=== PATIENT | female | born 1955 | race African-American/Black ===

== ENCOUNTER 2017-03-17 06:08 | Day surgery (SDC) | payer MEDICARE ==
[2017-03-15 11:30] LABS: BASOPHILS 0.1 % (0-2); EOSINOPHILS 1.5 % (0-7); HEMATOCRIT 32.8 % (36.0-48.0); HEMOGLOBIN 10.3 g/dL (12-16); IMMATURE GRANULOCYTES 0.1 % (0-5); MCH 27.2 pg (26.0-34.0); MCHC 31.4 g/dL (31.0-37.0); MCV 86.8 fL (80.0-100.0); MEAN PLATELET VOLUME 10.8 fL (7.4-10.4); MONOCYTES 7.2 % (2-11); NEUTROPHILS 70.1 % (40-80); PLATELET COUNT 168 10x3/uL (130-400); RBC 3.78 10x6/uL (4.00-5.40); WBC 8.2 10x3/uL (4.8-10.8)
[2017-03-15 11:39] LABS: ANION GAP 8.1 mmol/L (8-16); CALCIUM 8.9 mg/dL (8.5-10.1); CARBON DIOXIDE 34.6 mmol/L (21.0-32.0); POTASSIUM - SERUM 3.7 mmol/L (3.5-5.1)
[~2017-03-17] VITALS: Ht 163.8 cm; Wt 213.6 kg
[~2017-03-17 06:08] MED LIST: ALOPHEN PILLS5 MG PO; ANUSOL-HC 2.5%30 GM RC; BAYER ASPIRIN325 MG PO; CELEBREX 100 M100 MG PO; CITRATE OF MAG300 ML PO; DIOVAN HCT 160/1 TAB PO; FERROUS SULFAT325 MG PO; HYDROCODONE-APA1 TA3 PO; HYDROCODONE-APA1 TAB PO; HYZAAR 100-25 T1 TAB PO; IBUPROFEN200 MG PO; IPRAT-ALBUT 0.5-3 ML UPD; ISOSORBIDE DINI30 MG PO; ISOSORBIDE MONO30 M1 PO; KLOR-CON 1010 MEQ PO; KLOR-CON M2020 MEQ PO; LASIX40 MG PO; LEVOXYL125 MCG PO; MULTIPLE VITAMI1 TA1 PO; NEXIUM40 MG PO; OMEPRAZOLE20 M1 PO; OMNICEF300 MG PO; PROAIR HFA8.5 GM INH; SINGULAIR10 MG PO; TOPROL XL25 MG PO; TOPROL XL50 MG PO; ULTRAM50 MG PO; ZYLOPRIM300 MG PO
[2017-03-17 07:25] VITALS: BP 167/75; Ht 163.8 cm; Wt 213.6 kg
--- NOTE | 2017-03-17 07:25 | HP ---
PATIENT: PRUDENCIO GOODSON RED MEDICAL RECORD: [id number] ACCOUNT: [id number] LOCATION:[place] : 57 ADMISSION DATE: 03/17/17 HISTORY AND PHYSICAL EXAMINATION HISTORY OF PRESENT ILLNESS: This patient is a 62-year-old morbidly obese female with postmenopausal bleeding, scheduled for exam under anesthesia, appropriate biopsies, Pap smear, hysteroscopy and curettage on March 17. PAST MEDICAL HISTORY: Six previous pregnancies, 6 children. DRUG ALLERGIES: JASON INHIBITORS AND CLINDAMYCIN. CURRENT MEDICATIONS: Include potassium, rivaroxaban, allopurinol, aspirin, famotidine, furosemide, hydrocodone and acetaminophen, Isosorbide, levothyroxine, losartan with hydrochlorothiazide and metoprolol. PREVIOUS SURGERIES: Include breast surgery with lumpectomy in 1998 and hysteroscopy in 2014. FAMILY HISTORY: Noncontributory. REVIEW OF SYSTEMS: The patient is confined to wheelchair, unable to ambulate without a great deal of assistance. MEDICAL PROBLEMS: Include morbid obesity, congestive heart failure with heart murmur, diverticulitis, colon polyps, reflux. SOCIAL HISTORY: The patient is a . PHYSICAL EXAMINATION: VITAL SIGNS: Weight is approximately 470 pounds. HEENT: Grossly unremarkable. LUNGS: Clear. HEART: Regular rate and rhythm. A murmur is present at the left sternal border. PELVIC: Deferred for anesthesia. EXTREMITIES: Appear swollen. IMPRESSION: Postmenopausal bleeding and morbid obesity preventing any examination or evaluation in the office. PLAN: Exam under anesthesia, Pap smear, endocervical curettage, hysteroscopy, endometrial biopsies, endometrial curettage, all indicated procedures. I have discussed the above plan with the patient and her family member and answered all of her questions. TRANSINT:[id number] Voice Confirmation ID: [id number] DOCUMENT ID: [id number] HISTORY AND PHYSICAL [id number] PRUDENCIO GOODSON JANUARY JANNIE MAGAÑA MD at 0725 CC: [id number] DICTATION DATE: 03/15/171708 MOBILE HOME SET UP PERSON: 03/15/17 [id number] [place] [address]
--- NOTE | 2017-03-17 15:31 | NUR ---
1325--PT COMPLAINS OF NAUSEA, PHENERGHAN 25MG GIVEN IM. WILL CONTINUE TO MONITOR. ARACELI AGUILAR 1430--PT VOIDS WITHOUT DIFFICULTY. PT VERY SLEEPY, UNABLE TO STAY AWAKE TO COMPLETE CONVERSATION. ICE WATER AT BEDSIDE, INSTRUCTED FAMILY TO CALL OUT FOR NEDDEDS. ARACELI AGUILAR
--- NOTE | 2017-03-17 16:10 | NUR ---
1600--PT AWAKE AND SITTING UP IN BED, IV DC'D. ARACELI RN 1610--DISCHARGE INSTRUCTIONS GIVEN, PT VERBALIZES UNDERSTANDING. PT OFF UNIT VIA WC. ARACELI AGUILAR
--- NOTE | 2017-03-22 09:06 | OP ---
PATIENT NAME: PRUDENCIO GOODSON JANUARY MEDICAL RECORD: [id number] :57 [facility] ADMISS[facility] DATE: SURGEON: SUSIE MAGAÑA MD DATE OF OPERATION: 03/17/2017 PREOPERATIVE DIAGNOSES: Postmenopausal bleeding, morbid obesity, precluding office biopsy. POSTOPERATIVE DIAGNOSES: Postmenopausal bleeding, morbid obesity, precluding office biopsy. PROCEDURES: Exam under anesthesia, Pap smear, endocervical curettage, hysteroscopy, endometrial biopsy, and endometrial curettage. SURGEON: Susie Magaña M.D. ANESTHESIA: General. FINDINGS: A morbidly obese patient with normal-appearing cervix and irregular endometrial cavity upon visualization with the hysteroscope consistent in appearance with possible myoma. ESTIMATED BLOOD LOSS: Minimal. COMPLICATIONS OF SURGERY: None. OPERATIVE NOTE: The patient was taken to the OR and under adequate general anesthesia, prepped and draped in the usual manner for abdominal and vaginal procedures. Prior to prepping, a Pap smear was obtained and sent as a separate specimen. The endocervix was then curetted for a separate specimen. The cervix was progressively dilated to accept the hysteroscope and hysteroscopic evaluation revealed the above listed findings. An area in the lower uterus posteriorly and on patient's right appeared consistent with a myoma. Slight irregularity to the endometrium was biopsied. Instruments were then removed and the endometrial cavity was curetted and sent as a separate specimen. At the end of procedure, bleeding was minimal and the patient went to recovery area in good condition. TRANSINT:[id number] Voice Confirmation ID: [id number] DOCUMENT ID: [id number] SUSIE MAGAÑA MD at 0906 CC: [id number] DICTATION DATE: 03/17/17 1154 HOSPITAL ACCOUNT LIAISON: 03/17/172028 [facility] 03/17/17 [facility] [address] [id number]
== END 2017-03-17 16:10 | disposition home or self-care (01) ==
LOC: D.OPS 06:08 → D.PAN 09:45 → D.OPS 09:45
PROVIDERS: Obstetrics & Gynecology
DX: N84.0 Polyp of corpus uteri (principal); Z01.812 Encounter for preprocedural laboratory examination; E66.01 Morbid (severe) obesity due to excess calories; I50.9 Heart failure, unspecified; R01.1 Cardiac murmur, unspecified; K57.92 Diverticulitis of intestine, part unspecified, without perforation or abscess without bleeding; Z86.010 Personal history of colon polyps; K21.9 Gastro-esophageal reflux disease without esophagitis; Z79.82 Long term (current) use of aspirin; Z79.891 Long term (current) use of opiate analgesic; Z79.899 Other long term (current) drug therapy; Z88.1 Allergy status to other antibiotic agents; Z88.8 Allergy status to other drugs, medicaments and biological substances; Z68.45 Body mass index [BMI] 70 or greater, adult

== ENCOUNTER → 2017-04-01 10:57 | Outpatient (CLI) | payer MEDICARE ==
[2017-03-17 07:25] VITALS: BMI 79.7
== END | disposition home or self-care (01) ==
LOC: D.RAD 10:57
DX: M25.561 Pain in right knee (principal); M25.562 Pain in left knee

== ENCOUNTER → 2017-04-15 20:42 | Outpatient (CLI) | payer MEDICARE, MEDICAID ==
[2017-03-17 07:25] VITALS: BMI 79.7
== END | disposition home or self-care (01) ==
LOC: D.LABREF 20:42
DX: Z13.9 Encounter for screening, unspecified (principal)

== ENCOUNTER → 2017-05-12 19:04 | Outpatient (CLI) | payer MEDICARE, MEDICAID ==
[2017-03-17 07:25] VITALS: BMI 79.7
== END | disposition home or self-care (01) ==
LOC: D.LABREF 19:04
DX: L03.312 Cellulitis of back [any part except buttock and flank] (principal)

== ENCOUNTER → 2017-05-18 17:04 | Outpatient (CLI) | payer MEDICARE, MEDICAID ==
[2017-03-17 07:25] VITALS: BMI 79.7
== END | disposition home or self-care (01) ==
LOC: D.MAMMO 09:00
DX: Z12.31 Encounter for screening mammogram for malignant neoplasm of breast (principal)

== ENCOUNTER 2017-05-27 16:45 | Inpatient (IN) | payer MEDICARE, MEDICAID ==
[2017-05-27] MEDS ORDERED: PREDNISONE5 MG PO (17:58)
[2017-05-27] MEDS ORDERED: HYDROCODONE-APA1 TAB PO (18:00)
[2017-05-27] MEDS ORDERED: TYLENOL W/CODEI1 TAB PO (18:00)
[2017-05-27] MEDS ORDERED: MAGNESIUM OXID250 MG PO (18:01)
[2017-05-27] MEDS ORDERED: ASPIRIN325 MG PO (18:01)
[2017-05-27] MEDS ORDERED: ALEVE220 MG PO (18:02)
[2017-05-27] MEDS ORDERED: ACETAMINOPHEN500 M1 PO (18:02)
[2017-05-27] MEDS ORDERED: BACTRIM DS TABL1 TAB PO (18:03)
[2017-05-27] MEDS ORDERED: DOXYCYCLINE HY100 M2 PO (18:04)
--- NOTE | 2017-05-27 18:08 | NUR ---
PT TO ROOM, ALERT AND ORIENTED. FAMILY AT BEDSIDE. WILL ADMIT.
[2017-05-27 18:11] VITALS: BP 184/67; BMI 80.8
[2017-05-27 18:24] LABS: BASOPHILS 0.3 % (0-2); EOSINOPHILS 3.4 % (0-7); HEMATOCRIT 31.8 % (36.0-48.0); IMMATURE GRANULOCYTES 0.1 % (0-5); LYMPHOCYTES 19.6 % (15-50); MCH 27.4 pg (26.0-34.0); MCHC 31.4 g/dL (31.0-37.0); MCV 87.1 fL (80.0-100.0); MONOCYTES 6.6 % (2-11); PLATELET COUNT 175 10x3/uL (130-400); RBC 3.65 10x6/uL (4.00-5.40); RDW 16.5 % (11.5-14.5); WBC 6.7 10x3/uL (4.8-10.8)
[2017-05-27 19:02] LABS: ALBUMIN 3.4 g/dL (3.4-5.0); BILIRUBIN - TOTAL 0.2 mg/dL (0.2-1.3); CALCIUM 9.6 mg/dL (8.5-10.1); CARBON DIOXIDE 29.2 mmol/L (21.0-32.0); CREATININE - SERUM 1.1 mg/dL (0.6-1.3); POTASSIUM - SERUM 4.2 mmol/L (3.5-5.1); PROTEIN - SERUM 7.7 g/dL (6.4-8.2)
--- NOTE | 2017-05-27 19:40 | NUR ---
PT IN BED RESTING QUIETLY. FAMILY PRESENT IN ROOM. DENIES ANY NEEDS AT THIS TIME.
--- NOTE | 2017-05-27 20:20 | NUR ---
PT C/O PAIN. STATES TAKES HALF OF A NORCO 10 AT HOME AND AN ALEVE IN BETWEEN. VERIFIED ON HOME MED LIST. CALLED DR. MANN AND RECIEVED ORDER BY TELEPHONE TO START THESE MEDICATIONS WELL LOSARTAN 100/25 DUE TO BP BEING 184/67.
--- NOTE | 2017-05-27 22:00 | NUR ---
IV STARTED IN RIGHT UPPER ARM. 22G. ONE ATTEMPT. SALINE LOCKED. DRESSING CLEAN AND ADHERED TO SKIN. SWAB CAPS IN PLACE. PATENT.
[2017-05-27 23:46] LABS: APPEARANCE SLT CLOUDY (CLEAR); BILIRUBIN NEGATIVE (NEGATIVE); COLOR STRAW (YELLOW); GLUCOSE NEGATIVE (NEGATIVE); KETONE NEGATIVE (NEGATIVE); NITRITE NEGATIVE (NEGATIVE); PROTEIN NEGATIVE (NEGATIVE); UROBILINOGEN NORMAL (NORMAL)
[2017-05-28 04:00] VITALS: BP 137/60
[2017-05-28 05:46] LABS: BASOPHILS 0.3 % (0-2); EOSINOPHILS 4.4 % (0-7); HEMATOCRIT 29.8 % (36.0-48.0); HEMOGLOBIN 9.7 g/dL (12-16); IMMATURE GRANULOCYTES 0.2 % (0-5); LYMPHOCYTES 29.7 % (15-50); MCH 28.2 pg (26.0-34.0); MCHC 32.6 g/dL (31.0-37.0); MCV 86.6 fL (80.0-100.0); MEAN PLATELET VOLUME 11.7 fL (7.4-10.4); MONOCYTES 5.6 % (2-11); NEUTROPHILS 59.8 % (40-80); PLATELET COUNT 175 10x3/uL (130-400); RBC 3.44 10x6/uL (4.00-5.40); RDW 16.6 % (11.5-14.5); WBC 5.9 10x3/uL (4.8-10.8)
[2017-05-28 06:08] LABS: ALBUMIN 2.9 g/dL (3.4-5.0); ANION GAP 10.4 mmol/L (8-16); BILIRUBIN - TOTAL 0.2 mg/dL (0.2-1.3); CALCIUM 8.8 mg/dL (8.5-10.1); CARBON DIOXIDE 28.2 mmol/L (21.0-32.0); PHOSPHOROUS 3.8 mg/dL (2.5-4.9); POTASSIUM - SERUM 3.6 mmol/L (3.5-5.1); PROTEIN - SERUM 7.1 g/dL (6.4-8.2)
--- NOTE | 2017-05-28 07:11 | NUR ---
AM ROUNDS- PT UP TO SIDE OF BED, FAMILY GIVEN PT A BED BATH. PT A LITTLE SOB. DENIES ANY NEEDS AT THIS TIME. CALL LIGHT IN REACH, NAD NOTED, WILL CONTINUE TO MONITOR.
[2017-05-28 08:00] VITALS: BP 188/71
--- NOTE | 2017-05-28 08:55 | NUR ---
AM MEDS GIVEN AT THIS TIME. TREY SOARES AT BEDSIDE TO ASSESS PT. PT ASKING ABOUT ALL OF HER OTHER MES. WILL TALK TO AND SEE IF HE WANTS TO RESTART MEDS. PT DENIES ANY OTHER NEEDS AT THIS TIME. CALL LIGHT IN REACH, NAD NOTED, WILL CONTINUE TO MONITOR.
--- NOTE | 2017-05-28 10:06 | NUR ---
CALLED DR. MANN'S OFFICE, LEFT A MSG WITH MELANY TO LET DR. MANN KNOW THAT PT IS WANTING TO KNOW IF HER OTHER HOME MEDS CAN BE RESTARTED. MELANY WILL CALL BACK TO LET ME KNOW.
--- NOTE | 2017-05-28 10:25 | NUR ---
ADMINISTERED K ORDERED AND NAPROXEN FOR PAIN LEVEL OF 8/10. PT UP TO SIDE OF BED, DENIES ANY NEEDS AT THIS TIME. FAMILY AT BEDIDE, NAD NOTED, WILL CONTINUE TO MONITOR.
[2017-05-28] MEDS ORDERED: BACTROBAN CREAM15 GM TOPICAL (10:43)
[2017-05-28 12:00] VITALS: BP 146/49
--- NOTE | 2017-05-28 14:43 | NUR ---
Patient Name: PRUDENCIO GOODSON Admission Status: Elective Accout number: [id number] Admission Date: 05-27-2017 : 1955 Admission Diagnosis: Attending: ZIYAD MANN Current LOS: 1 Anticipated DC Date: Planned Disposition: Home Primary Insurance: [facility] Discharge Planning Comments: * Is the patient Alert and Oriented? Yes 0 * How many steps to enter\\exit or inside your home? RAMP 0 * PCP DR. MANN 0 * Pharmacy [facility] IN [place] 0 * Preadmission Environment Home with Family 0 * ADLs Partial Dependent 0 * Partial ADLs (Assistance needed) Bathing Dressing Medication Management Transfers 0 * Equipment CPAP Nebulizer Oxygen Wheelchair 0 * Other Equipment [facility] - MEDICAL EQUIPMENT PROVIDER 0 * List name and contact numbers for known caregivers / representatives who currently or will assist patient after discharge: RICHY HAMZAH, DTR, 0 * Community resources currently utilized Private Duty Care 0 * Please name any agencies selected above. DAUGHTER IS PAID CAREGIVER THROUGH [employer] ON [address] 0 * Additional services required to return to the preadmission environment? No 0 * Can the patient safely return to the preadmission environment? Yes 0 * Has this patient been hospitalized within the prior 30 days at any hospital? No 0 CM RECEIVED ORDER TO ASSIST WITH OBTAINING LIFT CHAIR FOR PT; CM CONTACTED DR. MANN TO INFORM THAT CHART NOTES WILL NEED TO INDICATE THAT PT HAS ARTHRITIS OF KNEES OR HIPS FOR THERE TO BE ANY HOPE THAT INSURANCE MAY ASSIST WITH THE LIFT CHAIR. CM MET WITH PT IN ROOM TO DISCUSS DISCHARGE PLANNING AND NEEDS. PT REPORTS LIVING AT HOME DEPENDENTLY WITH HER ADULT DAUGHTER WHO IS HER PAID CAREGIVER. PT REPORTS NEEDING ASSISTANCE WITH BATHING, TRANSFERS, DRESSING AND MEDICATION MANAGEMENT. PT HAS HOME OXYGEN, CPAP, NEBULIZER AND WHEELCHAIR FROM [facility] [employer] [facility]. PT REPORTS HER DAUGHTER HAS CHECKED WITH [employer] REGARDING THE LIFT CHAIR AND PT WANTS ORDER FAXED THERE. CM EXPLAINED THAT INSURANCE MAY PAY FOR THE LIFT MECHANISM ONLY AND THAT SHE WILL HAVE TO PAY FOR THE ACTUAL CHAIR WHICH MAY COSTS 200-700 DOLLARS, DEPENDING ON PT'S SELECTION OF CHAIR. PT REPORTED UNDERSTANDING. PT HAS MEALS ON WHEELS THROUGH THE [facility] ON [place]. CM DISCUSSED AVAILABILITY OF HOME HEALTH, REHAB SERVICES AND MEDICAL EQUIPMENT. PT DENIES DISCHARGE NEEDS OTHER THAN THE LIFT CHAIR, REPORTS PLAN TO RETURN HOME AT DISCHARGE WITH FAMILY ASSISTANCE, REPORTS FAMILY WILL PICK HER UP FOR DISCHARGE HOME. CM CALLED [facility], , SPOKE TO SNEHA WHO REPORTS ABILITY TO PROCESS ORDER FOR INSURANCE AND WILL NEED CHART NOTES FROM CLINIC INDICATING PT'S NEED FOR LIFT CHAIR AND WILL CONTACT THE DOCTOR IN CLINIC FOR ANY ADDITIONAL NEEDED INFORMATION. IF APPROVED BY INSURANCE, SNEHA WILL COODINATE DELIVERY WITH PT AND FAMILY. SNEHA REPORTS THIS IS A "PROCESS" AND MAY TAKE SOME TIME. CM FAXED ORDER AND CHART NOTES TO [facility] AT [phone]. CM TO FOLLOW AND ASSIST IF NEEDED. Swage Tender: Anup Flores
[2017-05-28 15:28] VITALS: BMI 80.7
[2017-05-28 16:00] VITALS: BP 135/69
--- NOTE | 2017-05-28 19:47 | NUR ---
PT IN BED RESTING QUEITLY. FAMILY IN ROOM. DENIES ANY PAIN OR NEEDS AT THIS TIME. BED IN LOW POSITION, CALL LIGHT WITHIN REACH.
--- NOTE | 2017-05-28 23:30 | NUR ---
PT STATES THAT SHE IS HAVING CRAMPING IN HER LEGS DUE TO LOW POTASSIUM. ORDERED LAB DRAW TO CHECK POTASSIUM LEVELS. DENIES ANY OTHER NEEDS AT THIS TIME. BED IN LOW POSITION, CALL LIGHT WITHIN REACH.
[2017-05-29 01:49] VITALS: BP 140/59
--- NOTE | 2017-05-29 02:22 | NUR ---
LAB RESULTS FOR K CAME BACK 3.5. INFORMED PT AND FAMILY MEMBERS. WILL NOT GIVE K PER PROTOCOL FOR THIS LEVEL. PT IN BED RESTING QUIETLY. DENIES ANY PAIN OR DISCOMFORT AT THIS TIME. BED IN LOW POSITION, CALL LIGHT WITHIN REACH.
[2017-05-29 05:53] VITALS: BP 152/72
--- NOTE | 2017-05-29 07:05 | NUR ---
RECEIVED REPORT. ASSUMED CARE OFNVTEINT. RESTING IN BED WITH EYES OPEN. PERSONAL CPAP UNIT PATENT. FAMILY AT BEDSIDE. PATIENT DENIES NEEDS AT THIS TIME. CALL LIGHT WITHIN REACH. NO DISTRESS.
[2017-05-29 07:17] LABS: BASOPHILS 0.3 % (0-2); EOSINOPHILS 4.9 % (0-7); HEMOGLOBIN 10.1 g/dL (12-16); IMMATURE GRANULOCYTES 0.2 % (0-5); LYMPHOCYTES 29.4 % (15-50); MCH 27.4 pg (26.0-34.0); MCHC 31.6 g/dL (31.0-37.0); MCV 86.7 fL (80.0-100.0); MEAN PLATELET VOLUME 11.6 fL (7.4-10.4); MONOCYTES 6.5 % (2-11); NEUTROPHILS 58.7 % (40-80); PLATELET COUNT 180 10x3/uL (130-400); RBC 3.69 10x6/uL (4.00-5.40); RDW 16.5 % (11.5-14.5); WBC 6.2 10x3/uL (4.8-10.8)
[2017-05-29 07:31] LABS: ALBUMIN 3.2 g/dL (3.4-5.0); ANION GAP 12.7 mmol/L (8-16); BILIRUBIN - TOTAL 0.3 mg/dL (0.2-1.3); CALCIUM 8.8 mg/dL (8.5-10.1); CARBON DIOXIDE 30.6 mmol/L (21.0-32.0); CREATININE - SERUM 1.1 mg/dL (0.6-1.3); POTASSIUM - SERUM 3.3 mmol/L (3.5-5.1); PROTEIN - SERUM 7.5 g/dL (6.4-8.2)
[2017-05-29 08:19] VITALS: BP 151/55
--- NOTE | 2017-05-29 10:28 | NUR ---
PAGED FOR ORDER CLARIFICATION.
--- NOTE | 2017-05-29 10:37 | NUR ---
SPOKE WITH AND RECIEVED ORDERS TO CHANGE LASIX BACK TO 40MG EVERY 12 HOURS DUE TO THE AMOUNT OF FLUID THAT WAS TAKEN OFF YESTERDAY. PATEINT IS DOING VERY WELL. THANKED FOR THE ORDERS PATIENT WAS NERVOUS ABOUT RECEIVING LASIX EVERY 6 HOURS. PATIENT AND FAMILY NOTIFIED OF THE CHANGE.
--- NOTE | 2017-05-29 11:14 | NUR ---
MEDICATED FOR PAIN AT THIS TIME. PATIENT HAVING SEVERE LEG CRAMPS.
--- NOTE | 2017-05-29 11:24 | NUR ---
MAGNESIUM ADDED TO AM LABS.
[2017-05-29 11:46] VITALS: BP 155/84
--- NOTE | 2017-05-29 11:54 | NUR ---
MAGNESIUM 1.6. MAGNESIUM EP INITIATED AT THIS TIME.
--- NOTE | 2017-05-29 12:32 | NUR ---
MEDICATED FOR PAIN AT THIS TIME. NO DISTRESS.
[2017-05-29 16:01] VITALS: BP 141/94
--- NOTE | 2017-05-29 16:33 | NUR ---
FAMILY REMAINS AT BEDSIDE. CALL LIGHT WITHIN REACH. PATIENT DENIES NEEDS AT THIS TIME. 2ND DOSE OF MAGNESIUM ADMINISTERED AT 1600 PER PROTOCOL. LABS ORDERED FOR AM PER PROTOCOL. NO DISTRESS.
--- NOTE | 2017-05-29 18:19 | NUR ---
MEDICATED FOR PAIN AT THIS TIME. NO DISTRESS.
--- NOTE | 2017-05-29 19:50 | NUR ---
PT RESTING IN BED. ADULT CHILDREN X 2 AT BEDSIDE. PT ALERT/ORIENTED. SR PER TELEMETRY. NONLABORED RESPIRATIONS ON ROOM AIR. DOES WEAR HOME CPAP AT NIGHT. PIV TO LEWIS SALINE LOCKED. PT GETS UP AND DOWN TO BATHROOM WITH ASSIST OF CHILDREN. NO NEEDS VOICED. DISCUSSED PAIN MEDS AND WHEN SHE CAN HAVE NEXT DOSES. SEE ASSESSMENT. CPOC.
[2017-05-29 20:00] VITALS: BP 134/40
--- NOTE | 2017-05-29 22:00 | NUR ---
BEDTIME MEDS HAVE NOW BEEN GIVEN. PT ALSO C/O NO BM SINCE LAST WEDNESDAY, SO PROVIDED PT WITH COCKTAIL OF WARMED PRUNE JUICE AND LEMON ROBINSON DRINK. PROVIDED NAPROXEN FOR PAIN AT THIS TIME. WILL MONITOR.
[2017-05-30] VITALS: BP 126/72
--- NOTE | 2017-05-30 01:15 | NUR ---
MEDICATED WITH NORCO TAB X 1 FOR PAIN/DISCOMFORT. PT STATES THE PRUNEJUICE/LEMON SOBOBA COCKTAILS SHE RECIEVED EARLIER IS WORKING AND SHE HAS ALREADY HAD ONE GOOD BM AND FEELS THAT SHE MAY STILL HAVE ANOTHER BM SHORTLY. PT ALSO SAID HER DAUGHTER APPLIED THE ANUSOL CREAM TO HER HEMORRHOIDS. NO OTHER NEEDS AT THIS TIME.
[2017-05-30 04:00] VITALS: BP 136/87
[2017-05-30 06:15] LABS: ALBUMIN 3.1 g/dL (3.4-5.0); ANION GAP 12.4 mmol/L (8-16); BILIRUBIN - TOTAL 0.3 mg/dL (0.2-1.3); CALCIUM 8.6 mg/dL (8.5-10.1); CARBON DIOXIDE 31.2 mmol/L (21.0-32.0); CREATININE - SERUM 1.2 mg/dL (0.6-1.3); MAGNESIUM - SERUM 1.7 mg/dL (1.8-2.4); POTASSIUM - SERUM 3.6 mmol/L (3.5-5.1); PROTEIN - SERUM 7.3 g/dL (6.4-8.2)
--- NOTE | 2017-05-30 07:00 | NUR ---
RECEIVED REPORT. ASSUMED CARE OF PATIENT. CALL LIGHT WITHIN REACH. NO DISTRESS. RESTING IN BED, COMPLAINING OF PAIN. FAMILY AT BEDSIDE.
--- NOTE | 2017-05-30 07:30 | NUR ---
MEDICATED FOR PAIN AT THIS TIME. NO DISTRESS.
[2017-05-30 07:58] VITALS: BP 137/59
[2017-05-30 11:14] VITALS: BP 123/58
--- NOTE | 2017-05-30 13:14 | NUR ---
MEDICATED FOR PAIN AT THIS TIME.
--- NOTE | 2017-05-30 15:25 | NUR ---
MEDICATED FOR PAIN AT THIS TIME.
[2017-05-30 16:18] VITALS: BP 100/58
--- NOTE | 2017-05-30 17:19 | NUR ---
RESTING IN BED. FAMILY AT BEDSIDE. NO DISTRESS. DENIES NEEDS AT THIS TIME.
--- NOTE | 2017-05-30 19:09 | NUR ---
MEDICATED FOR PAIN AT THIS TIME. NO DISTRESS.
[2017-05-30 20:00] VITALS: BP 124/79
--- NOTE | 2017-05-30 21:03 | NUR ---
PT AWAKE, ALERT, ORIENTED, FAMILY AT BEDSIDE. PT IS C/O GREAT PAIN IN HER KNEES AND OTHER JOINTS, STATES THE PRN PAIN MEDICATION HELPS MINIMALLY. PT DID AMBULATE WITH ASSISTANCE BY HER DAUGHTER SO THAT WE COULD ZERO OUT THE BEDSCALE, BUT IS ABLE TO STAND ONLY FOR VERY SHORT PERIODS OF TIME. PT DENIES ANY OTHER NEEDS. CONTINUE TO MONITOR CLOSELY. BED LOW, CALL LIGHT IN REACH, SIDE RAILS X 2, HOB 30 DEGREES.
[2017-05-31] VITALS: BP 116/69
[2017-05-31 04:00] VITALS: BP 126/88
[2017-05-31 05:11] LABS: BASOPHILS 0.3 % (0-2); EOSINOPHILS 3.7 % (0-7); HEMATOCRIT 30.2 % (36.0-48.0); HEMOGLOBIN 9.5 g/dL (12-16); IMMATURE GRANULOCYTES 0.1 % (0-5); MCH 27.5 pg (26.0-34.0); MCHC 31.5 g/dL (31.0-37.0); MCV 87.3 fL (80.0-100.0); MEAN PLATELET VOLUME 11.5 fL (7.4-10.4); MONOCYTES 6.2 % (2-11); NEUTROPHILS 62.7 % (40-80); PLATELET COUNT 177 10x3/uL (130-400); RBC 3.46 10x6/uL (4.00-5.40); RDW 16.7 % (11.5-14.5); WBC 6.8 10x3/uL (4.8-10.8)
[2017-05-31 05:29] LABS: ALBUMIN 3.1 g/dL (3.4-5.0); ANION GAP 11.3 mmol/L (8-16); BILIRUBIN - TOTAL 0.27 mg/dL (0.2-1.3); CALCIUM 8.3 mg/dL (8.5-10.1); CARBON DIOXIDE 32.1 mmol/L (21.0-32.0); CREATININE - SERUM 1.3 mg/dL (0.6-1.3); MAGNESIUM - SERUM 1.8 mg/dL (1.8-2.4); POTASSIUM - SERUM 3.4 mmol/L (3.5-5.1); PROTEIN - SERUM 7.3 g/dL (6.4-8.2)
--- NOTE | 2017-05-31 06:24 | NUR ---
PT RESTING COMFORTABLY, C-PAP ON, DAUGHTER AT BEDSIDE. PT DENIES ANY NEEDS. CONTINUE TO MONITOR CLOSELY.
--- NOTE | 2017-05-31 07:15 | NUR ---
RECIEVED REPORT ON PATIENT, PATIENT IS ALERT AND ORIENTED AT THIS TIME. PATIENT HAS A R UPPER ARM IV THAT IS SL AT THIS TIME. PATIENT IS SR ON MONITOR WITH A RATE OF 70. PATIENT IS WEARING CPAP AT THIS TIME, PATIENT DENIES ANY NEEDS OR PAIN AT THIS TIME. BED IS LOW AND LOCKED. CALL LIGHT IN REACH. WILL CONT TO MONITOR. CPOC
[2017-05-31] MEDS ORDERED: COZAAR50 MG PO (07:51)
[2017-05-31] MEDS ORDERED: LASIX40 MG PO (07:53)
[2017-05-31 08:00] VITALS: BP 135/59
--- NOTE | 2017-05-31 09:00 | NUR ---
MORNING MEDICATION GIVEN, ASSESSMENT DONE. PATIENT DENIES ANY NEEDS. BED LOW AND LOCKED, CALL LIGHT IN REACH. CPOC.
--- NOTE | 2017-05-31 11:16 | NUR ---
PATIENT SITTING ON SIDE OF BED, DENIES ANY NEEDS AT THIS TIME. PATIENT IS GOING TO BE DC TODAY, WAITING ON PAPERWORK. CPOC
[2017-05-31 12:00] VITALS: BP 146/58
--- NOTE | 2017-05-31 12:10 | NUR ---
Patient Name: PRUDENCIO GOODSON Encounter No: [id number] : 1955 Primary Insurance: [employer] Anticipated DC Date: 05-31-2017 Planned Disposition: Home WITH HOME HEALTH External Planned Provider: [facility] DCP follow-up note: CM RECEIVED DISCHARGE AND HOME HEALTH ORDERS. CM MET WITH PT AND DAUGHTER IN ROOM. PT REPORTS PLAN TO DISCHARGE TO HER SON'S APARTMENT AT [address] [place] [address], [address] [place]. [address]; PT WILL STAY THERE FOR APPROXIMATELY ONE MONTH PRIOR TO RETURNING TO HER HOME IN [place]. CM DISCUSSED ORDER AND PROVIDERS FOR HOME HEALTH. PT INITIALLY STATED THAT SHE HAS FAMILY AND HER DAUGHTER A CAREGIVER ALL OF THE TIME AND DID NOT SEE THE NEED FOR HOME HEALTH. CM RECEIVED CLAIFICATION FROM THE DOCTOR, PT WILL NEED DAILY WEIGHTS AND VITALS DUE TO MEDICATION CHANGES; PT REPORTS SHE WILL ACCEPT HOME HEALTH, HAS NO PREFERENCE ON PROVIDER. PT NOR FAMILY HAVE A SCALE TO WEIGH PT. HOME HEALTH CHOICE SIGNED, IMPORTANT MESSAGE FROM MEDICARE PROVIDED AND EXPLAINED. CM CALLED [facility], , WAS ADVISED BY ZOILA THEY DID NOT HAVE NEXT DAY AVAILABILITY NOR THE ABILITY TO WEIGH PT AT HER CURRENT WEIGHT. CM CALLED [facility], , SPOKE TO ADI, PROVIDED REFERRAL INFORMATION, DISCUSSED DAILY WEIGHTS AND VITALS WELL PT'S CURRENT WEIGHT. ADI WILL RECEIVE REFERRAL AND LET CM KNOW IF THEY CAN PROVIDE SERVICES. CM FAXED REFERRAL TO [facility], . CM WAITING RETURN CALL FROM [facility] TO NOTIFY CM IF [facility] WILL ACCEPT OR DECLINE PT. Anup Flores, CASE MANAGEMENT
--- NOTE | 2017-05-31 14:38 | NUR ---
PATIENT RESTING WITH EYES CLOSED, AROUSES TO VOICE. DENIES ANY NEEDS. FAMILY AT BEDSIDE. CPOC
--- NOTE | 2017-05-31 17:16 | NUR ---
PATIENT IV DC WITH CATH TIP INTACT. SIGNED DC PAPERWORK. DENIES ANY QUESTIONS. PATIENT READY FOR DC
--- NOTE | 2017-06-02 16:59 | NUR ---
Patient Name: PRUDENCIO GOODSON Encounter No: [id number] : 1955 Primary Insurance: [employer] Anticipated DC Date: 05-31-2017 Planned Disposition: Home DCP follow-up note: CM RECEIVED CALL FROM ADI OF [facility], [facility] MET WITH PT AT HOME FOR ADMISSION AND PT HAS REFUSED HOME HEALTH SERVICES AND REPORTS SHE IS STILL DRIVING A VEHICLE. ADI CALLED TO INFORM CM THAT PT DECLINED SERVICES. Anup Flores, CASE MANAGEMENT
--- NOTE | 2017-06-18 16:56 | EC ---
PATIENT:PRUDENCIO GOODSON JANUARY DATE OF SERVICE: 05/27/17 SEX: F MEDICAL RECORD: [id number] DATE OF : [birth year] LOCATION:D.M2 D.213 AGE OF PATIENT: 62 ADMISSION DATE: 05/27/17 REFERRING PHYSICIAN: INTERPRETING PHYSICIAN: KELLI REYNOLDS MD ECHOCARDIOGRAM REPORT ECHO CHARGES 4 ECHO COMPLETE CLINICAL DIAGNOSIS: CHF/SOB ECHOCARDIOGRAPHIC MEASUREMENTS (adult normal given) AC root (d.<3.7cm) 2.7 cm LV Septum d (<1.2 cm> 1.0 cm Valve Excursion 1.8 cm LV Septum (systole) 1.6 cm Left Atria (s.<4.0cm> 3.4 cm LVPW d(<1.2cm) 1.2 cm RV (d.<2.3cm) 3.5 cm LVPW (sytole) 2.1 cm LV diastole(<5.6CM) 6.3 cm MV E-F(>70mm/sec) cm LV systole 3.2 cm LVOT Diameter 1.8 cm MV exc.(>10mm) cm Est.ejection fraction (50-75%) % Pericardial Effusion N DOPPLER: LVIT cm/sec A 76.0 cm/sec E 86.0 cm/sec LA cm/sec RVSP 36.0 mmHg LVOT 180 cm/sec AOP1/2T m/s Asc. Ao 309 cm/sec RVOT 83.0 cm/sec RA cm/sec PA 155 cm/sec AV Gradient Peak 38.2 mmHg AV Mean 19.0 mmHg AV Area 1.8 cm MV Gradient Peak 6.0 mmHg MV Mean 2.5 mmHg MV Area cm COMMENTS: Heat Treat Furnace Operator: Dannielle MCDANIELOE Door Liner Helper: 1 Dr. Reynolds TAPE# PACS DATE OF SERVICE: 05/28/2017 ECHOCARDIOGRAM FINDINGS: 1. Left ventricle chamber size is within normal limits. Left ventricular systolic function is normal. Overall ejection fraction estimated at 55%. 2. Left atrium and right atrium: Left atrium is within normal limits at 3.4 cm. Right atrium and right ventricular chamber sizes are mildly dilated. 3. Valvular structures: The aortic valve demonstrates mild calcific aortic ECHOCARDIOGRAM REPORT [id number] PRUDENCIO GOODSON JANUARY stenosis. The valve area calculates to 1.8 cm square. There is a gradient of 38 mm across the valve. The remaining valvular structures have normal structure and motion. 4. Doppler interrogation elsewise reveals no significant valvular insufficiency or stenosis and pulmonary systolic pressure is normal estimated 36 mmHg. 5. No evidence of pericardial effusion or left ventricular thrombus. TRANSINT:[id number] Voice Confirmation ID: [id number] DOCUMENT ID: [id number] KELLI REYNOLDS MD at 1656 CC: [id number] DICTATION DATE: 05/28/17 1413 ELECTROLYSIST: 05/28/17 1533 DIS IN 05/31/17 [facility] [address] [place] [address]
== END 2017-05-31 17:17 | disposition home health service (06) | DRG 292 ==
LOC: D.M2 16:45 → UNDOADMIN 16:45 → D.M2 17:33
PROVIDERS: ADMIT Family Medicine
DX: I11.0 Hypertensive heart disease with heart failure (principal); Z68.44 Body mass index [BMI] 60.0-69.9, adult; I50.33 Acute on chronic diastolic (congestive) heart failure; D64.9 Anemia, unspecified; E78.5 Hyperlipidemia, unspecified; G47.33 Obstructive sleep apnea (adult) (pediatric); I35.0 Nonrheumatic aortic (valve) stenosis; E66.01 Morbid (severe) obesity due to excess calories

== ENCOUNTER → 2017-06-10 13:31 | Outpatient (CLI) | payer MEDICARE, MEDICAID ==
[2017-05-28 15:28] VITALS: BMI 80.7
[~2017-06-10 13:31] MED LIST changes: +ACETAMINOPHEN500 M1 PO; +ALEVE220 MG PO; +ASPIRIN325 MG PO; +BACTRIM DS TABL1 TAB PO; +BACTROBAN CREAM15 GM TOPICAL; +COZAAR50 MG PO; +DOXYCYCLINE HY100 M2 PO; +MAGNESIUM OXID250 MG PO; +PREDNISONE5 MG PO; +TYLENOL W/CODEI1 TAB PO
== END | disposition home or self-care (01) ==
LOC: D.MAMMO 09:30
DX: R92.8 Other abnormal and inconclusive findings on diagnostic imaging of breast (principal)

== ENCOUNTER → 2017-07-14 08:34 | Outpatient (CLI) | payer SELFPAY ==
[~2017-07-14] VITALS: Ht 163.8 cm; Wt 204.1 kg
[2017-07-14 10:40] VITALS: Ht 163.8 cm; Wt 204.1 kg
== END | disposition home or self-care (01) ==
LOC: D.FANS 06-09 10:30
DX: K21.9 Gastro-esophageal reflux disease without esophagitis (principal); E66.01 Morbid (severe) obesity due to excess calories

== ENCOUNTER 2017-12-26 11:02 | Emergency (ER) | payer MEDICARE, MEDICAID ==
[2017-07-14 10:40] VITALS: BMI 76.0
[2017-12-26 13:38] LABS: APPEARANCE CLOUDY (CLEAR); BILIRUBIN NEGATIVE (NEGATIVE); COLOR YELLOW (YELLOW); GLUCOSE NEGATIVE (NEGATIVE); KETONE NEGATIVE (NEGATIVE); NITRITE NEGATIVE (NEGATIVE); PROTEIN TRACE mg/dL (NEGATIVE); UROBILINOGEN NORMAL (NORMAL)
[2017-12-26 13:40] LABS: BACTERIA MODERATE /hpf (NONE SEEN); EPITHELIAL CELLS 0-5 /hpf (0-5); RED CELLS - URINE 0-5 /hpf (0-5); WHITE CELLS - URINE 0-5 /hpf (0-5)
== END 2017-12-26 14:21 | disposition home or self-care (01) ==
LOC: D.ER 11:02
PROVIDERS: Physician Assistant
DX: M54.6 Pain in thoracic spine (principal); I50.9 Heart failure, unspecified; I10 Essential (primary) hypertension; G47.33 Obstructive sleep apnea (adult) (pediatric); E03.9 Hypothyroidism, unspecified

== ENCOUNTER → 2018-03-03 09:46 | Outpatient (CLI) | payer MEDICARE, MEDICAID ==
[2017-07-14 10:40] VITALS: BMI 76.0
== END | disposition home or self-care (01) ==
LOC: D.RAD 02-25 13:00 → D.RT 02-25 13:00 → D.RAD 02-25 13:45 → D.RT 09:00
DX: J45.909 Unspecified asthma, uncomplicated (principal)

== ENCOUNTER 2018-05-15 13:53 | Observation (INO) | payer MEDICARE, MEDICAID ==
[~2018-05-15] VITALS: Ht 163.8 cm; Wt 207.7 kg
--- NOTE | ~2018-05-15 | EC ---
PATIENT:PRUDENCIO GOODSON JANUARY DATE OF SERVICE: 05/15/18 SEX: F MEDICAL RECORD: [id number] DATE OF : [birth year] LOCATION:D. D.212 AGE OF PATIENT: 63 ADMISSION DATE: 05/15/18 REFERRING PHYSICIAN: INTERPRETING PHYSICIAN: KELLI REYNOLDS MD ECHOCARDIOGRAM REPORT ECHO CHARGES 4 ECHO COMPLETE Date: 05/16/18 CLINICAL DIAGNOSIS: CHF ECHOCARDIOGRAPHIC MEASUREMENTS (adult normal given) AC root (d.<3.7cm) 3.0 cm LV Septum d (<1.2 cm> 1.4 cm Valve Excursion 1.6 cm LV Septum (systole) 2.1 cm Left Atria (s.<4.0cm> 3.8 cm LVPW d(<1.2cm) 1.5 cm RV (d.<2.3cm) 2.6 cm LVPW (sytole) 2.1 cm LV diastole(<5.6CM) 5.9 cm MV E-F(>70mm/sec) cm LV systole 4.1 cm LVOT Diameter 1.8 cm MV exc.(>10mm) cm Est.ejection fraction (50-75%) % DOPPLER: LVIT cm/sec A 103 cm/sec E 147 cm/sec LA cm/sec RVSP 50.0 mmHg LVOT 252 cm/sec AOP1/2T m/s Asc. Ao 339 cm/sec RVOT 87.0 cm/sec RA cm/sec PA 147 cm/sec AV Gradient Peak 46.0 mmHg AV Mean 24.0 mmHg AV Area 2.0 cm MV Gradient Peak 7.4 mmHg MV Mean 3.1 mmHg MV Area cm COMMENTS: Solvent Station Attendant: 1 DAVINA [place] Director Of Critical Care: 1 Dr. Reynolds TAPE# PACS Pericardial Effusion N DATE OF SERVICE: FINDINGS: 1. Left ventricular chamber size is mildly dilated. Left ventricular systolic function is normal. Overall ejection fraction estimated at 55%. 2. Left atrium is within normal limits at 3.8 cm. Right atrium and right ventricle chamber sizes are moderately dilated. 3. Valvular structures have normal structure and motion. 4. Doppler interrogation reveals mild mitral regurgitation. No other valvular insufficiency or stenosis. Pulmonary systolic pressure is elevated, estimated ECHOCARDIOGRAM REPORT [id number] PRUDENCIO GOODSON JANUARY at 50 mmHg. 5. No evidence of pericardial effusion or left ventricular thrombus. TRANSINT:[id number] Voice Confirmation ID: [id number] DOCUMENT ID: [id number] KELLI REYNOLDS MD at 1823 CC: [id number] DICTATION DATE: 05/16/18 1251 HOT PRESS OPERATOR: 05/16/18 1326 ADM IN [facility] [address] [place] [address]
[2018-05-15 14:34] LABS: BASOPHILS 0.3 % (0-2); EOSINOPHILS 2.9 % (0-7); HEMATOCRIT 32.8 % (36.0-48.0); HEMOGLOBIN 10.4 g/dL (12-16); IMMATURE GRANULOCYTES 0.4 % (0-5); LYMPHOCYTES 28.2 % (15-50); MCHC 31.7 g/dL (31.0-37.0); MCV 88.2 fL (80.0-100.0); MEAN PLATELET VOLUME 11.5 fL (7.4-10.4); MONOCYTES 6.3 % (2-11); NEUTROPHILS 61.9 % (40-80); PLATELET COUNT 167 10x3/uL (130-400); RBC 3.72 10x6/uL (4.00-5.40); RDW 15.1 % (11.5-14.5); WBC 7.6 10x3/uL (4.8-10.8)
[2018-05-15 15:11] LABS: ALBUMIN 3.4 g/dL (3.4-5.0); ALKALINE PHOSPHATASE 118 U/L (46-116); ALT (SGPT) 18 U/L (10-68); BILIRUBIN - TOTAL 0.22 mg/dL (0.2-1.3); CALC OSMOLALITY 280 mosm/kg (275-300); CALCIUM 9.3 mg/dL (8.5-10.1); CARBON DIOXIDE 29.5 mmol/L (21.0-32.0); CHLORIDE - SERUM 103 mmol/L (98-107); GLUCOSE 97 mg/dL (74-106); POTASSIUM - SERUM 3.5 mmol/L (3.5-5.1); PROTEIN - SERUM 8.6 g/dL (6.4-8.2); SODIUM 140 mmol/L (136-145); UREA NITROGEN 17 mg/dL (7-18); eGFR NON AFRICAN AMERICAN 59 mL/min (90-120)
[2018-05-15 15:23] LABS: CKMB 0.3 U/L (0.0-3.6); CREATINE KINASE 69 UL (21-215); PRO BNP 332 pg/mL (0-125)
[2018-05-15 15:29] LABS: TROPONIN-I < 0.017 ng/mL (0.000-0.060)
[2018-05-15 19:00] VITALS: BP 157/64
[2018-05-15 19:51] VITALS: BP 179/87
[2018-05-15 22:23] VITALS: BP 156/53; Ht 163.8 cm; Wt 207.7 kg
[2018-05-15 23:09] LABS: CKMB 0.3 U/L (0.0-3.6); CREATINE KINASE 82 UL (21-215)
[2018-05-15 23:12] LABS: TROPONIN-I < 0.017 ng/mL (0.000-0.060)
[2018-05-16 01:13] VITALS: BP 156/53
[2018-05-16 05:32] LABS: CKMB 0.3 U/L (0.0-3.6); CREATINE KINASE 75 UL (21-215); TROPONIN-I < 0.017 ng/mL (0.000-0.060)
[2018-05-16 06:12] VITALS: BP 163/61
[2018-05-16 07:55] VITALS: BP 169/58
[2018-05-16 11:55] VITALS: BP 164/68
[2018-05-16 16:29] VITALS: BP 132/50
[2018-05-16 20:00] VITALS: BP 149/58
[2018-05-17 04:00] VITALS: BP 169/73
[2018-05-17 08:21] VITALS: BP 170/49
[2018-05-17 09:43] LABS: BASOPHILS 0.3 % (0-2); EOSINOPHILS 4.3 % (0-7); HEMATOCRIT 33.2 % (36.0-48.0); HEMOGLOBIN 10.6 g/dL (12-16); IMMATURE GRANULOCYTES 0.2 % (0-5); LYMPHOCYTES 29.1 % (15-50); MCH 28.1 pg (26.0-34.0); MCHC 31.9 g/dL (31.0-37.0); MCV 88.1 fL (80.0-100.0); MEAN PLATELET VOLUME 11.6 fL (7.4-10.4); MONOCYTES 4.5 % (2-11); NEUTROPHILS 61.6 % (40-80); PLATELET COUNT 171 10x3/uL (130-400); RBC 3.77 10x6/uL (4.00-5.40); RDW 15.2 % (11.5-14.5); WBC 6.5 10x3/uL (4.8-10.8)
[2018-05-17 09:58] LABS: ANION GAP 11.3 mmol/L (8-16); CALCIUM 9.3 mg/dL (8.5-10.1); CARBON DIOXIDE 32.3 mmol/L (21.0-32.0); CREATININE - SERUM 1.1 mg/dL (0.6-1.3); POTASSIUM - SERUM 3.6 mmol/L (3.5-5.1)
[2018-05-17 15:39] VITALS: BP 164/56
[2018-05-17 23:42] VITALS: BP 157/65
[2018-05-18 01:57] VITALS: BP 136/53
[2018-05-18 05:19] LABS: BASOPHILS 0.3 % (0-2); EOSINOPHILS 4.1 % (0-7); HEMATOCRIT 30.8 % (36.0-48.0); HEMOGLOBIN 9.7 g/dL (12-16); LYMPHOCYTES 31.3 % (15-50); MCH 27.6 pg (26.0-34.0); MCHC 31.5 g/dL (31.0-37.0); MCV 87.7 fL (80.0-100.0); MEAN PLATELET VOLUME 11.6 fL (7.4-10.4); MONOCYTES 7.4 % (2-11); NEUTROPHILS 56.9 % (40-80); PLATELET COUNT 155 10x3/uL (130-400); RBC 3.51 10x6/uL (4.00-5.40); RDW 15.3 % (11.5-14.5); WBC 6.3 10x3/uL (4.8-10.8)
[2018-05-18 05:29] LABS: ANION GAP 13.1 mmol/L (8-16); BILIRUBIN - TOTAL 0.21 mg/dL (0.2-1.3); CALCIUM 8.5 mg/dL (8.5-10.1); CARBON DIOXIDE 31.5 mmol/L (21.0-32.0); CREATININE - SERUM 1.1 mg/dL (0.6-1.3); POTASSIUM - SERUM 3.6 mmol/L (3.5-5.1); PROTEIN - SERUM 7.4 g/dL (6.4-8.2)
[2018-05-18 06:34] VITALS: BP 150/90
[2018-05-18 09:04] VITALS: BP 156/53
[2018-05-18 11:26] VITALS: BP 146/59
[2018-05-18 15:47] VITALS: BP 151/68
[2018-05-18 22:05] VITALS: BP 136/49
[2018-05-19 06:16] VITALS: BP 146/52
[2018-05-19 08:39] VITALS: BP 114/54
[2018-05-19 10:47] VITALS: BP 134/51
[2018-05-19 15:37] VITALS: BP 112/47
[2018-05-19 21:18] VITALS: BP 168/54
[2018-05-19 21:35] LABS: ALBUMIN 3.5 g/dL (3.4-5.0); ANION GAP 9.1 mmol/L (8-16); BILIRUBIN - TOTAL 0.24 mg/dL (0.2-1.3); CARBON DIOXIDE 32.6 mmol/L (21.0-32.0); CREATININE - SERUM 1.1 mg/dL (0.6-1.3); POTASSIUM - SERUM 3.7 mmol/L (3.5-5.1); PROTEIN - SERUM 8.6 g/dL (6.4-8.2)
[2018-05-20 05:42] VITALS: BP 153/55
[2018-05-20 08:19] VITALS: BP 154/53
[2018-05-20 11:50] VITALS: BP 135/50
[2018-05-20] MEDS ORDERED: POTASSIUM CHLO10 ME1 PO (13:54)
[2018-05-20] MEDS ORDERED: BUMETANIDE0.5 MG PO (13:54)
[2018-05-20] MEDS ORDERED: BUMEX2 MG PO (14:46)
== END 2018-05-20 17:54 | disposition home or self-care (01) ==
LOC: D.ER 13:53 → D.EDHOLD 18:40 → D.M2 18:40 → OBSVTIME 20:00 → D.M2 05-17 08:51 → D.SDCHOLD 05-17 08:51 → D.M2 05-20 17:54
PROVIDERS: Emergency Medicine; Family Medicine
DX: I11.0 Hypertensive heart disease with heart failure (principal); I50.30 Unspecified diastolic (congestive) heart failure; G47.33 Obstructive sleep apnea (adult) (pediatric); J44.9 Chronic obstructive pulmonary disease, unspecified; E66.01 Morbid (severe) obesity due to excess calories; Z68.45 Body mass index [BMI] 70 or greater, adult; I35.0 Nonrheumatic aortic (valve) stenosis

== ENCOUNTER 2018-10-29 13:48 | Emergency (ER) | payer MEDICARE, MEDICAID ==
[~2018-10-29] VITALS: Ht 163.8 cm; Wt 204.5 kg
[~2018-10-29 13:48] MED LIST changes: +BUMETANIDE0.5 MG PO; +BUMEX2 MG PO; +POTASSIUM CHLO10 ME1 PO
[2018-10-29 14:22] VITALS: Ht 163.8 cm; Wt 204.5 kg
[2018-10-29 15:22] LABS: BASOPHILS 0.3 % (0-2); EOSINOPHILS 3.2 % (0-7); HEMATOCRIT 36.5 % (36.0-48.0); HEMOGLOBIN 11.5 g/dL (12-16); IMMATURE GRANULOCYTES 0.2 % (0-5); LYMPHOCYTES 23.1 % (15-50); MCH 28.4 pg (26.0-34.0); MCHC 31.5 g/dL (31.0-37.0); MCV 90.1 fL (80.0-100.0); MEAN PLATELET VOLUME 11.2 fL (7.4-10.4); MONOCYTES 5.4 % (2-11); NEUTROPHILS 67.8 % (40-80); PLATELET COUNT 149 10x3/uL (130-400); RBC 4.05 10x6/uL (4.00-5.40); RDW 15.3 % (11.5-14.5); WBC 6.3 10x3/uL (4.8-10.8)
[2018-10-29 15:36] LABS: ALBUMIN 3.4 g/dL (3.4-5.0); ANION GAP 12.1 mmol/L (8-16); BILIRUBIN - TOTAL 0.2 mg/dL (0.2-1.3); CALCIUM 9.3 mg/dL (8.5-10.1); CARBON DIOXIDE 30.1 mmol/L (21.0-32.0); CREATININE - SERUM 0.9 mg/dL (0.6-1.3); POTASSIUM - SERUM 4.2 mmol/L (3.5-5.1); PROTEIN - SERUM 8.4 g/dL (6.4-8.2)
[2018-10-29 19:06] VITALS: BP 183/63
== END 2018-10-29 19:06 | disposition home or self-care (01) ==
LOC: D.ER 13:48
PROVIDERS: Family Medicine
DX: R13.10 Dysphagia, unspecified (principal); J04.0 Acute laryngitis

== ENCOUNTER → 2018-10-31 08:26 | Outpatient (CLI) | payer MEDICARE, MEDICAID ==
[2018-10-29 14:22] VITALS: BMI 76.2
== END | disposition home or self-care (01) ==
LOC: D.RAD 08:26
PROVIDERS: ATTEND Internal Medicine Gastroenterology
DX: Z86.010 Personal history of colon polyps (principal); K64.8 Other hemorrhoids; K64.4 Residual hemorrhoidal skin tags; D64.9 Anemia, unspecified; R19.5 Other fecal abnormalities

== ENCOUNTER → 2019-01-05 08:15 | Outpatient (CLI) | payer MEDICARE, MEDICAID ==
[2018-10-29 14:22] VITALS: BMI 76.2
[~2019-01-05 08:15] MED LIST changes: +GABAPENTIN100 MG PO
== END | disposition home or self-care (01) ==
LOC: D.RAD 08:15
PROVIDERS: ATTEND Family Medicine
DX: R13.10 Dysphagia, unspecified (principal)

== ENCOUNTER 2019-01-09 13:43 | Inpatient (IN) | payer MEDICARE, MEDICAID ==
[~2019-01-09] VITALS: Ht 163.8 cm; Wt 240.4 kg
[~2019-01-09 13:43] MED LIST changes: -GABAPENTIN100 MG PO
[2019-01-09] MEDS ORDERED: KLOR-CON M2020 MEQ PO (13:51)
[2019-01-09] MEDS ORDERED: GABAPENTIN100 MG PO (13:52)
[2019-01-09 14:36] LABS: BASOPHILS 0.3 % (0-2); EOSINOPHILS 5.6 % (0-7); HEMATOCRIT 34.3 % (36.0-48.0); IMMATURE GRANULOCYTES 0.2 % (0-5); LYMPHOCYTES 23.2 % (15-50); MCH 29.3 pg (26.0-34.0); MCHC 32.1 g/dL (31.0-37.0); MCV 91.2 fL (80.0-100.0); MEAN PLATELET VOLUME 11.5 fL (7.4-10.4); NEUTROPHILS 62.7 % (40-80); PLATELET COUNT 165 10x3/uL (130-400); RBC 3.76 10x6/uL (4.00-5.40); RDW 14.2 % (11.5-14.5); WBC 6.2 10x3/uL (4.8-10.8)
[2019-01-09 14:51] LABS: ALBUMIN 3.4 g/dL (3.4-5.0); ALKALINE PHOSPHATASE 118 U/L (46-116); ALT (SGPT) 18 U/L (10-68); BILIRUBIN - TOTAL 0.21 mg/dL (0.2-1.3); CALC OSMOLALITY 276 mosm/kg (275-300); CALCIUM 9.2 mg/dL (8.5-10.1); CARBON DIOXIDE 30.3 mmol/L (21.0-32.0); CHLORIDE - SERUM 102 mmol/L (98-107); CREATININE - SERUM 0.9 mg/dL (0.6-1.3); GLUCOSE 93 mg/dL (74-106); POTASSIUM - SERUM 4.2 mmol/L (3.5-5.1); PROTEIN - SERUM 8.2 g/dL (6.4-8.2); SODIUM 138 mmol/L (136-145); UREA NITROGEN 15 mg/dL (7-18); eGFR NON AFRICAN AMERICAN 67 mL/min (90-120)
--- NOTE | 2019-01-09 14:53 | NUR ---
PT SITTING UPRIGHT IN CHAIR AT THE BEDSIDE. RESPIRATIONS EVEN AND UNLABORED. NO SIGNS OF DISTRESS. FAMILY PRESENT AT THE BEDSIDE, WILL CONTINUE TO MONITOR.
[2019-01-09 15:02] LABS: CKMB 0.3 U/L (0.0-3.6); CREATINE KINASE 82 UL (21-215); PRO BNP 200 pg/mL (0-125); TROPONIN-I < 0.017 ng/mL (0.000-0.060)
--- NOTE | 2019-01-09 15:07 | NUR ---
WARM BLANKET PROVIDED FOR COMFORT REQUESTED.
[2019-01-09 19:40] LABS: % SATURATION 18 % (15-55); IRON 55 ug/dl (35-150); TOTAL IRON BIND CAPACITY 295 ug/dl (260-445); UNSAT IRON BIND CAPACITY 240 ug/dl (150-375)
[2019-01-09 20:00] VITALS: BP 166/57
--- NOTE | 2019-01-09 20:15 | NUR ---
PATIENT RESTING IN BED WITH FAMILY AT BEDSIDE AND NO S/S OF DISTRESS. PATIENT REQUESTED PAIN PILL. TOLD THE PATIENT I WOULD CALL AND DISCUSS PAIN MEDICATION WITH THE DOCTOR. PATIENT ALSO REQUESTED A GRAY BECAUSE SHE HAS A DIFFICULT TIME GETTING OUT OF BED AND TAKES A DIURETIC. PATIENT DENIES OTHER NEEDS AT THIS TIME. BED IN LOWEST POSITION AND CALL LIGHT WITHIN REACH. WILL CONTINUE TO MONITOR.
--- NOTE | 2019-01-09 20:22 | NUR ---
SPOKE WITH DR. MARTIN IN REGARDS TO PATIENT REQUESTS. DR. MARTIN GAVE A TELEPHONE ORDER FOR PATIENT'S HOME DOSE OF NORCO-10 AND STATED NOT TO PUT A GRAY IN THE PATIENT.
[2019-01-10] VITALS: BP 156/62
[2019-01-10 03:07] VITALS: BP 166/57; BMI 89.7
[2019-01-10 04:00] VITALS: BP 119/48
[2019-01-10 07:04] LABS: BASOPHILS 0.2 % (0-2); EOSINOPHILS 5.3 % (0-7); HEMATOCRIT 31.5 % (36.0-48.0); HEMOGLOBIN 9.9 g/dL (12-16); IMMATURE GRANULOCYTES 0.2 % (0-5); LYMPHOCYTES 24.2 % (15-50); MCH 28.4 pg (26.0-34.0); MCHC 31.4 g/dL (31.0-37.0); MCV 90.3 fL (80.0-100.0); MEAN PLATELET VOLUME 11.2 fL (7.4-10.4); MONOCYTES 7.1 % (2-11); PLATELET COUNT 146 10x3/uL (130-400); RBC 3.49 10x6/uL (4.00-5.40); RDW 14.3 % (11.5-14.5); WBC 6.1 10x3/uL (4.8-10.8)
--- NOTE | 2019-01-10 07:05 | NUR ---
INITIAL ROUNDING, PATIENT RESTING SUPINE WITH EYES CLOSED, CALL LIGHT IN REACH
[2019-01-10 07:17] LABS: ALBUMIN 2.9 g/dL (3.4-5.0); ANION GAP 10.7 mmol/L (8-16); BILIRUBIN - TOTAL 0.19 mg/dL (0.2-1.3); CALCIUM 8.6 mg/dL (8.5-10.1); CARBON DIOXIDE 29.3 mmol/L (21.0-32.0); MAGNESIUM - SERUM 1.8 mg/dL (1.8-2.4); PROTEIN - SERUM 7.4 g/dL (6.4-8.2)
[2019-01-10 08:20] VITALS: BP 127/49
--- NOTE | 2019-01-10 08:29 | NUR ---
NURSE CALLED TO THE ROOM TO ASSESS THE PATIENTS LEFT ARM/HAND. IV TO THE LEFT AC FLUSHED WITHOUT RESISTANCE AND WITH NO PAIN, THE INSERTION SITE IS HARD AND THE SURROUNDING AREA IS FIRM, THE ARM AND HAND SWOLLEN. PATIENT INSTRUCTED THE IV SEEMS TO HAVE BEEN DISLODGED/NOT IN THE VEIN AND WILL NO LONGER BE USED. A NEW IV NEED TO BE STARTED ON THE RIGHT . PATIENT IS REQUESTING HER HAND NOT BE USED.
--- NOTE | 2019-01-10 11:33 | MORECARE ---
CASE MANAGEMENT DISCHARGE SUMMARY PATIENT: PRUDENCIO GOODSON JANUARY UNIT: [id number] ADM DATE: 01/09/19 AGE: 63 : 57 SEX: F ROOM/BED: D.1205 AUTHOR: AMANDEEP GIBBONS PHYSICIAN: REFERRING PHYSICIAN: TIANA MARTIN MD DATE OF SERVICE: 01/10/19 Discharge Plan Patient Name: PRUDENCIO GOODSON Facility: [facility]:[place] : 1955 Planned Disposition: Home Anticipated Discharge Date: Discharge Date: Expected LOS: Initial Reviewer: [email or web address] Initial Review Date: 01/10/2019 Generated: 01/10/19 12:32 pm Patient Name: PRUDENCIO GOODSON Page [phone] at 1133 All edits/amendments must be made on the electronic document DICTATION DATE: 01/10/19 113 LITIGATION ATTORNEY: MILAGROS 01/10/19 1132 RPT#: [id number] HI DATE: STATUS: ADM IN [facility] [address] [place] [address] END OF REPORT
[2019-01-10 14:18] VITALS: Ht 163.8 cm; Wt 240.4 kg
[2019-01-10 16:33] VITALS: BP 138/45
[2019-01-10 21:34] VITALS: BP 140/64
[2019-01-11 04:00] VITALS: BP 153/74
--- NOTE | 2019-01-11 04:48 | NUR ---
PT IN BED IN LOW FOWLERS POSITION. ALERT AND ORIENTED X4. RESPIRATIONS EVEN AND UNLABORED. VS STABLE AND AFEBRIL. NO CUES OF DISTRESS NOTED. DENIES ANY OTHER NEEDS AT THIS TIME. BED LOW, SIDE RAILS UP X2. CALL LIGHT IN REACH. WILL CONTINUE TO MONITOR.
[2019-01-11 06:59] LABS: BASOPHILS 0.3 % (0-2); EOSINOPHILS 5.1 % (0-7); HEMATOCRIT 30.8 % (36.0-48.0); HEMOGLOBIN 9.8 g/dL (12-16); IMMATURE GRANULOCYTES 0.2 % (0-5); MCH 28.9 pg (26.0-34.0); MCHC 31.8 g/dL (31.0-37.0); MCV 90.9 fL (80.0-100.0); MEAN PLATELET VOLUME 11.2 fL (7.4-10.4); MONOCYTES 8.3 % (2-11); NEUTROPHILS 65.1 % (40-80); PLATELET COUNT 161 10x3/uL (130-400); RBC 3.39 10x6/uL (4.00-5.40); RDW 14.2 % (11.5-14.5); WBC 5.9 10x3/uL (4.8-10.8)
--- NOTE | 2019-01-11 07:19 | NUR ---
INITIAL ROUNDING, PATIENT IS RESTING IN BED WITH EYES CLOSED, FAMILY AT THE BEDSIDE. NO S/S OF SOB NOTED.
[2019-01-11 07:29] LABS: ANION GAP 11.3 mmol/L (8-16); BILIRUBIN - TOTAL 0.22 mg/dL (0.2-1.3); CALCIUM 8.4 mg/dL (8.5-10.1); CARBON DIOXIDE 30.5 mmol/L (21.0-32.0); CREATININE - SERUM 0.9 mg/dL (0.6-1.3); MAGNESIUM - SERUM 1.6 mg/dL (1.8-2.4); POTASSIUM - SERUM 3.8 mmol/L (3.5-5.1); PROTEIN - SERUM 7.5 g/dL (6.4-8.2)
[2019-01-11 08:56] VITALS: BP 158/58
[2019-01-11 12:12] LABS: FOLATE (FOLIC ACID) - SERUM 10.5 ng/mL (>3.0)
[2019-01-11 12:55] LABS: APPEARANCE CLEAR (CLEAR); BILIRUBIN NEGATIVE (NEGATIVE); COLOR YELLOW (YELLOW); GLUCOSE NEGATIVE (NEGATIVE); KETONE NEGATIVE (NEGATIVE); NITRITE NEGATIVE (NEGATIVE); PROTEIN NEGATIVE (NEGATIVE); SPECIFIC GRAVITY 1.015 (1.005-1.020); UROBILINOGEN NORMAL (NORMAL)
--- NOTE | 2019-01-11 14:14 | NUR ---
CALLED AND SPOKE TO DR BESS TO REPORT THE CONSULT
--- NOTE | 2019-01-11 14:18 | NUR ---
SPOKE TO PRATIMA AT DR QUARLES OFFICE TO REPORT CONSULT
[2019-01-11 16:39] VITALS: BP 179/88
[2019-01-11 16:52] VITALS: BP 164/89
[2019-01-11 21:00] VITALS: BP 132/66
[2019-01-12] VITALS (7 sets, daily range): BP systolic 111–151; BP diastolic 53–80
[2019-01-12 06:38] LABS: HEMATOCRIT 33.2 % (36.0-48.0); HEMOGLOBIN 10.2 g/dL (12-16); MCH 29.1 pg (26.0-34.0); MCHC 30.7 g/dL (31.0-37.0); MEAN PLATELET VOLUME 11.5 fL (7.4-10.4); PLATELET COUNT 145 10x3/uL (130-400); RDW 14.6 % (11.5-14.5); WBC 6.1 10x3/uL (4.8-10.8)
[2019-01-12 06:55] LABS: MCV 94.9 fL (80.0-100.0)
[2019-01-12 07:15] LABS: ALBUMIN 3.2 g/dL (3.4-5.0); ALKALINE PHOSPHATASE 104 U/L (46-116); ALT (SGPT) 28 U/L (10-68); BILIRUBIN - TOTAL 0.23 mg/dL (0.2-1.3); CALC OSMOLALITY 276 mosm/kg (275-300); CALCIUM 8.2 mg/dL (8.5-10.1); CARBON DIOXIDE 25.7 mmol/L (21.0-32.0); CHLORIDE - SERUM 101 mmol/L (98-107); CREATININE - SERUM 0.8 mg/dL (0.6-1.3); GLUCOSE 92 mg/dL (74-106); MAGNESIUM - SERUM 1.5 mg/dL (1.8-2.4); POTASSIUM - SERUM 4.1 mmol/L (3.5-5.1); PROTEIN - SERUM 7.1 g/dL (6.4-8.2); SODIUM 139 mmol/L (136-145); UREA NITROGEN 11 mg/dL (7-18); eGFR NON AFRICAN AMERICAN 77 mL/min (90-120)
--- NOTE | 2019-01-12 07:42 | NUR ---
INITIAL ROUNDING, DAUGHTER AT THE BEDSIDE. PATIENT IN BED, SUPINE WITH HOB AT 30 DEGREES APPROX, LAB RESULTS REVIEWED WITH THE PATIENT AND HER FAMILY. PATIENT DENIES ANY NEEDS AT THIS TIME
[2019-01-12 08:31] LABS: EOSINOPHILS 3 % (0-7); LYMPHOCYTES 22 % (15-50); MONOCYTES 2 % (2-11); NEUTROPHILS 73 % (40-80); PLATELET ESTIMATE NORMAL
[2019-01-12 08:36] LABS: ROULEAUX OCC
--- NOTE | 2019-01-12 13:41 | NUR ---
Nutrition Follow Up: Chart reviewed Diet: AHA PO Intake: 92% meal avg No BM since admit Labs reviewed Meds noted including Bumex Rec continue current diet. RD following.
[2019-01-13] VITALS: BP 149/55
[2019-01-13 04:00] VITALS: BP 123/61
--- NOTE | 2019-01-13 07:35 | NUR ---
PT RESTING IN BED, EYES OPEN. FAMILY AT BEDSIDE. ALERT AND ORIENTED. SHEERING TO LEFT BUTTOCK. PT NPO FOR DANDY PROCEDURE SCHEDULED TODAY, PT IS REFUSING PROCEDURE. PT STATED, ANGIOGRAPHER TOLD HER YESTERDAY THEY WERE NOT GOING TO PERFORM PROCEDURE UNTIL LUNGS IMPROVED, AND THAT THE PROCEDURE WAS GOING TO BE DONE OUTPATIENT. NOTIFIED CARDIOLOGY. PT ON ELECTROLYTE PROTOCOL. ON 2L O2, NC. PT DENIES ANYTHING FURTHER AT THIS TIME. CALL LIGHT IN REACH. WILL CONTINUE TO MONITOR.
[2019-01-13 08:15] LABS: BASOPHILS 0.3 % (0-2); EOSINOPHILS 5.2 % (0-7); HEMATOCRIT 31.9 % (36.0-48.0); IMMATURE GRANULOCYTES 0.2 % (0-5); LYMPHOCYTES 25.3 % (15-50); MCH 28.8 pg (26.0-34.0); MCHC 31.3 g/dL (31.0-37.0); MEAN PLATELET VOLUME 11.6 fL (7.4-10.4); MONOCYTES 6.4 % (2-11); NEUTROPHILS 62.6 % (40-80); PLATELET COUNT 156 10x3/uL (130-400); RBC 3.47 10x6/uL (4.00-5.40); RDW 14.1 % (11.5-14.5); WBC 6.1 10x3/uL (4.8-10.8)
[2019-01-13 08:17] LABS: ANION GAP 7.3 mmol/L (8-16); BILIRUBIN - TOTAL 0.24 mg/dL (0.2-1.3); CALCIUM 8.4 mg/dL (8.5-10.1); CREATININE - SERUM 0.9 mg/dL (0.6-1.3); MAGNESIUM - SERUM 1.4 mg/dL (1.8-2.4); POTASSIUM - SERUM 3.8 mmol/L (3.5-5.1); PROTEIN - SERUM 7.6 g/dL (6.4-8.2)
[2019-01-13 08:23] LABS: MCV 91.9 fL (80.0-100.0)
[2019-01-13 08:43] LABS: CARBON DIOXIDE 36.5 mmol/L (21.0-32.0)
[2019-01-13] MEDS ORDERED: VIBRAMYCIN 100100 MG PO (09:18)
[2019-01-13 09:41] VITALS: BP 135/84
[2019-01-13] MEDS ORDERED: TESSALON PERLE100 MG PO (09:58)
[2019-01-13] MEDS ORDERED: Tessalon Perle PO (09:58)
[2019-01-13] MEDS ORDERED: SINGULAIR10 MG PO (09:58)
[2019-01-13] MEDS ORDERED: ALBUTEROL2.5 MG/3 M INH (09:58)
--- NOTE | 2019-01-13 10:34 | NUR ---
FAMILY AT BEDSIDE, HOUSEKEEPING UNABLE TO CLEAN ROOM. THIS NURSE TOLD TRANSLATOR INTERPRETER TO COME BACK LATER.
--- NOTE | 2019-01-13 12:28 | NUR ---
PT O2 SAT 99% ON 2L, PUT ON ROOM AIR O2 SAT 99%.
--- NOTE | 2019-01-13 12:51 | MORECARE ---
CASE MANAGEMENT DISCHARGE SUMMARY PATIENT: PRUDENCIO GOODSON JANUARY UNIT: [id number] ADM DATE: 01/09/19 AGE: 63 : 57 SEX: F ROOM/BED: D.1205 AUTHOR: AMANDEEP GIBBONS PHYSICIAN: REFERRING PHYSICIAN: TIANA MARTIN MD DATE OF SERVICE: 01/13/19 Discharge Plan Patient Name: PRUDENCIO GOODSON Facility: [facility]:[place] : 1955 Planned Disposition: Home Anticipated Discharge Date: Discharge Date: Expected LOS: Initial Reviewer: [email or web address] Initial Review Date: 01/10/2019 Generated: 01/13/19 1:51 pm Comments DCP- Discharge Planning Updated by [id number]: Desiree Rasmussen on 01/13/19 11:[address] LATE ENTRY 1150 CM MET WITH THE PATIENT , HER DAUGHTER AND SON AT THE BEDSIDE. INTRODUCED SELF AND OBTAINED VERBAL CONSENT TO PROCEED WITH INITIAL ASSESSMENT AND DISCHARGE PLANNING NEEDS. EDUCATED ON ROLE OF CM AND DISCUSSED AVAILABLE SERVICES. PATIENT LIVES AT HOME AND HER DAUGHTER PROVIDES CARE THRU [facility] ON [address]. SHE HAS GOOD FAMILY SUPPORT. SHE UTILIZES A WHEELCHAIR AND HAS A RAMP TO ENTER HER HOME. DENIES ANY RECENT HOSPITALIZATION. CAN OBTAIN AND AFFORD HER MEDICATIONS. [facility] [place] [facility] [place]. PCP- DR ZIYAD MANN SHE HAS A CPAP-NEBULIZER AND WHEELCHAIR. SHE IS PRESENTLY ON NASAL O2 AT 2/L. SHE DOES NOT HAVE HOME OXYGEN THERAPY. CM DISCUSSED WITH THE PRIMARY NURSE. CM REQUESTED RM AIR SAT READING. PATIENT AWAITS DR RICE TO VISIT TO DETERMINE IF SHE WILL BE CLEARED FOR DISCHARGE TODAY. SHE WILL HAVE TRANSPORTATION TO HOME. SHE AND THE FAMILY DENIES ANY NEEDS. Coverage Notice Reviewer: [id number] - Meagan Solorio Notice Issued Date-Time: 01/11/2019 12:10 Notice Type: IM Discharge Notice Notice Delivered To: Patient Relationship to Patient: Self Assurance Manager Name: Delivery Method: HAND - Hand Delivered Donna Days: Prior Verbal Notification: Recipient Understood Notice: Recipient Signature: Med Rec Note Co-signed by Attending: Coverage Notice Comment: Last DP export: 01/10/19 10:32 a Patient Name: PRUDENCIO GOODSON Page 62768 at 1251 All edits/amendments must be made on the electronic document DICTATION DATE: 01/13/191250 DIAMOND DRILLER HELPER: MILAGROS 01/13/19 125 RPT#: [id number] DC DATE: STATUS: ADM IN [facility] [address] [place] [address] END OF REPORT
[2019-01-13 13:53] VITALS: BP 158/70
--- NOTE | 2019-01-13 14:58 | MORECARE ---
CASE MANAGEMENT DISCHARGE SUMMARY PATIENT: PRUDENCIO GOODSON JANUARY UNIT: [id number] ADM DATE: 01/09/19 AGE: 63 : 57 SEX: F ROOM/BED: D.1205 AUTHOR: AMANDEEP GIBBONS PHYSICIAN: REFERRING PHYSICIAN: TIANA MARTIN MD DATE OF SERVICE: 01/13/19 Discharge Plan Patient Name: PRUDENCIO GOODSON Facility: [facility]:[place] : 1955 Planned Disposition: Home Anticipated Discharge Date: 01/13/19 Discharge Date: Expected LOS: 4 Initial Reviewer: [email or web address] Initial Review Date: 01/10/2019 Generated: 01/13/19 3:58 pm Comments DCP- Discharge Planning Updated by [email or web address]: Desiree Rasmussen on 01/13/19 11:[address] LATE ENTRY 1150 CM MET WITH THE PATIENT , HER DAUGHTER AND SON AT THE BEDSIDE. INTRODUCED SELF AND OBTAINED VERBAL CONSENT TO PROCEED WITH INITIAL ASSESSMENT AND DISCHARGE PLANNING NEEDS. EDUCATED ON ROLE OF CM AND DISCUSSED AVAILABLE SERVICES. PATIENT LIVES AT HOME AND HER DAUGHTER PROVIDES CARE THRU [facility] ON [address]. SHE HAS GOOD FAMILY SUPPORT. SHE UTILIZES A WHEELCHAIR AND HAS A RAMP TO ENTER HER HOME. DENIES ANY RECENT HOSPITALIZATION. CAN OBTAIN AND AFFORD HER MEDICATIONS. [facility] IN [place]. PCP- DR ZIYAD MANN SHE HAS A CPAP-NEBULIZER AND WHEELCHAIR. SHE IS PRESENTLY ON NASAL O2 AT 2/L. SHE DOES NOT HAVE HOME OXYGEN THERAPY. CM DISCUSSED WITH THE PRIMARY NURSE. CM REQUESTED RM AIR SAT READING. PATIENT AWAITS DR RICE TO VISIT TO DETERMINE IF SHE WILL BE CLEARED FOR DISCHARGE TODAY. SHE WILL HAVE TRANSPORTATION TO HOME. SHE AND THE FAMILY DENIES ANY NEEDS. Coverage Notice Reviewer: [id number] - Meagan Solorio Notice Issued Date-Time: 01/11/2019 12:10 Notice Type: IM Discharge Notice Notice Delivered To: Patient Relationship to Patient: Self Solder Making Laborer Name: Delivery Method: HAND - Hand Delivered Donna Days: Prior Verbal Notification: Recipient Understood Notice: Recipient Signature: Med Rec Note Co-signed by Attending: Coverage Notice Comment: Last DP export: 01/13/19 11:51 a Patient Name: PRUDENCIO GOODSON Page 40205 at 1458 All edits/amendments must be made on the electronic document DICTATION DATE: 01/13/191456 HYDRAULIC MINER: MILAGROS 01/13/191456 RPT#: [id number] DC DATE: STATUS: ADM IN [facility] [address] [place] [address] END OF REPORT
--- NOTE | 2019-01-13 15:09 | MORECARE ---
CASE MANAGEMENT DISCHARGE SUMMARY PATIENT: PRUDENCIO GOODSON JANUARY UNIT: [id number] ADM DATE: 01/09/19 AGE: 63 : 57 SEX: F ROOM/BED: D.1205 AUTHOR: EDWIGE,DOC PHYSICIAN: REFERRING PHYSICIAN: TIANA MARTIN MD DATE OF SERVICE: 01/13/19 Discharge Plan Patient Name: PRUDENCIO GOODSON Facility: [facility]:[place] : 1955 Planned Disposition: Home Anticipated Discharge Date: 01/13/19 Discharge Date: Expected LOS: 4 Initial Reviewer: [email or web address] Initial Review Date: 01/10/2019 Generated: 01/13/19 4:09 pm Comments DCP- Discharge Planning Updated by [email or web address]: Desiree Rasmussen on 01/13/19 11:[address] LATE ENTRY 1150 CM MET WITH THE PATIENT , HER DAUGHTER AND SON AT THE BEDSIDE. INTRODUCED SELF AND OBTAINED VERBAL CONSENT TO PROCEED WITH INITIAL ASSESSMENT AND DISCHARGE PLANNING NEEDS. EDUCATED ON ROLE OF CM AND DISCUSSED AVAILABLE SERVICES. PATIENT LIVES AT HOME AND HER DAUGHTER PROVIDES CARE THRU [facility] ON [address]. SHE HAS GOOD FAMILY SUPPORT. SHE UTILIZES A WHEELCHAIR AND HAS A RAMP TO ENTER HER HOME. DENIES ANY RECENT HOSPITALIZATION. CAN OBTAIN AND AFFORD HER MEDICATIONS. PHARMACY- [facility] IN [place]. PCP- DR ZIYAD MANN SHE HAS A CPAP-NEBULIZER AND WHEELCHAIR. SHE IS PRESENTLY ON NASAL O2 AT 2/L. SHE DOES NOT HAVE HOME OXYGEN THERAPY. CM DISCUSSED WITH THE PRIMARY NURSE. CM REQUESTED RM AIR SAT READING. PATIENT AWAITS DR RICE TO VISIT TO DETERMINE IF SHE WILL BE CLEARED FOR DISCHARGE TODAY. SHE WILL HAVE TRANSPORTATION TO HOME. SHE AND THE FAMILY DENIES ANY NEEDS. DCPIA - Discharge Planning Initial Assessment Updated by [email or web address]: Desiree Rasmussen on 01/13/19 2:59 pm * Is the patient Alert and Oriented? Yes * How many steps to enter\exit or inside your home? RAMP * PCP DR ROXANNE MANN * Pharmacy [facility] [place] * Preadmission Environment Home with Family * ADLs Partial Dependent * Partial ADLs (Assistance needed) Bathing Dressing Medication Management Toileting Transfers * Equipment CPAP Nebulizer Wheelchair * List name and contact numbers for known caregivers / representatives who currently or will assist patient after discharge: RICHY GOODSON- R- [phone] * Verbal permission to speak to the caregivers and representatives has been obtained from the patient. Yes * Community resources currently utilized None * Please name any agencies selected above. N/A * Additional services required to return to the preadmission environment? No * Can the patient safely return to the preadmission environment? Yes * Has this patient been hospitalized within the prior 30 days at any hospital? No Coverage Notice Reviewer: [email or web address] Ben Solorio Notice Issued Date-Time: 01/11/2019 12:10 Notice Type: IM Discharge Notice Notice Delivered To: Patient Relationship to Patient: Self Paleontological Helper Name: Delivery Method: HAND - Hand Delivered Donna Days: Prior Verbal Notification: Recipient Understood Notice: Recipient Signature: Med Rec Note Co-signed by Attending: Coverage Notice Comment: Last DP export: 01/13/19 1:58 p Patient Name: PRUDENCIO GOODSON Page [id number] at 1509 All edits/amendments must be made on the electronic document DICTATION DATE: 01/13/19 150 CRM TECHNICAL LEAD: MILAGROS 01/13/19 1509 RPT#: [id number] DC DATE: STATUS: ADM IN [facility] [address] [place] [address] END OF REPORT
--- NOTE | 2019-01-13 15:51 | NUR ---
PT DISCHARGED HOME WITH FAMILY VIA WHEELCHAIR. WENT OVER DISCHARGE INSTRUCTIONS WITH PATIENT, PT DENIES ANY CONCERNS AND ACKNOWLEDGED INSTRUCTIONS.
== END 2019-01-13 15:53 | disposition home or self-care (01) | DRG 291 ==
LOC: D.ER 13:43 → D.M3 16:20 → D.ER 16:45 → D.M3 01-13 15:53
PROVIDERS: Family Medicine; ADMIT Internal Medicine Nephrology; ATTEND Internal Medicine Nephrology
DX: I11.0 Hypertensive heart disease with heart failure (principal); J18.9 Pneumonia, unspecified organism; Z68.45 Body mass index [BMI] 70 or greater, adult; J44.0 Chronic obstructive pulmonary disease with (acute) lower respiratory infection; I50.33 Acute on chronic diastolic (congestive) heart failure; D64.9 Anemia, unspecified; E66.01 Morbid (severe) obesity due to excess calories; G47.33 Obstructive sleep apnea (adult) (pediatric); K21.9 Gastro-esophageal reflux disease without esophagitis; M19.90 Unspecified osteoarthritis, unspecified site; G62.9 Polyneuropathy, unspecified; G89.29 Other chronic pain; I35.0 Nonrheumatic aortic (valve) stenosis

== ENCOUNTER 2019-02-20 11:01 | Outpatient (CLI) | payer MEDICARE, MEDICAID ==
[~2019-02-20] VITALS: Ht 163.8 cm; Wt 236.4 kg
--- NOTE | ~2019-02-20 | HEMODYNAMI ---
PATIENT:PRUDENCIO GOODSON JANUARY MEDICAL RECORD: [id number] : 57 LOCATION:[facility] ADMISSION DATE: 02/20/19 Generatedon:02/20/201913:33 Patient name: PRUDENCIO GOODSON Patient #: [id number] SSN: : 1955 Date of study: 02/20/2019 Page: Of Hemodynamic Procedure Report Patient Data Patient Demographics Procedure consent was obtained First Name: PRUDENCIO Gender: Female Last Name: HAMZAH : 1955 Middle Initial: JANUARY Age: 64 year(s) Patient #: [id number] Race: Black Additional ID: [id number] Contact details Address: [address] [place] [address] State: [place] City: [place] Zip code: [address] Admission Admission Data Admission Date: 02/20/2019 Admission Time: 11:01 Procedure Procedure Types Cath Procedure Diagnostic Procedure DANDY Procedure Description Procedure Date Procedure Date: 02/20/2019 Procedure Start Time: 13:20 Procedure End Time: 13:33 Procedure Staff Name Function Kiran Stephenson MD Performing Physician Delvin Hooks RT Monitor Maximo Veloz RN Nurse Tonio Fischer CRNA Additional personnel Sidra Vaz Plate Drying Machine Tender Procedure Medications Medication Administration Route Dosage Oxygen etCO2 Nasal cannula 2 l/min Hurricaine [place] P.O. 1 Sprays Refer to Anesthesia Notes for Sedation Medications Hemodynamics Rest Heart Rate: 72 (bpm) Snapshots Pre Cath Intra NCS Post Cath Vital Signs Time Heart Resp SPO2 etCO2 NIBP (mmHg) Rhythm Pain Sedation Rate (ipm) (%) (mmHg) Status Level (bpm) 13:15:37 72 20 98 0 Measuring NSR (Missing) 10(A) 13:16:05 71 23 99 0 164/76(99) NSR (Missing) 10(A) 13:21:05 71 30 100 24.8 Measuring NSR (Missing) 10(A) 13:21:50 13 96 15.7 187/97(147) NSR (Missing) 9(A) 13:26:49 76 35 92 9.7 Measuring NSR (Missing) 9(A) 13:27:52 76 32 95 0 225/109(159) NSR (Missing) 9(A) 13:30:46 70 15 96 10.5 173/83(105) NSR (Missing) 10(A) Medications Time Medication Route Dose Verified Delivered Reason Notes Effecti veness by by 13:19:51 Oxygen etCO2 2 Kiran Marsh used for Nasal l/min St Xavier Veloz RN procedure cannula 13:20:01 Hurricaine P.O. 1 Kiran Beck for local [place] Sprays [facility] John anesthetic MD CHOWDARY 13:20:05 Refer to Kiran Beck Anesthesia [facility] Notes for MD CHOWDARY Sedation Medications Procedure Log Time Note 13:03:17 Maximo Veloz RN sent for patient. Start room use. 13:03:20 Time tracking: Regular hours (M-F 7:00 - 5:00) 13:03:27 Plan of Care:Hemodynamics will remain stable., Cardiac rhythm will remain stable., Comfort level will be maintained., Respiratory function will remain adequate., Patient/ family verbilizes understanding of procedure., Procedure tolerated without complication., Recovers from procedure without complications.. 13:11:35 Patient received from Pre/Post Procedure Room to CCL 3 Alert and oriented. Tansferred to table in Supine position. 13:11:37 Warm blankets applied, and adolfo hugger turned on for patient comfort. 13:11:38 Correct patient and procedure confirmed by team. 13:11:41 Signed procedure consent form obtained from patient. 13:13:46 ECG and BP/O2 sat monitors applied to patient. 13:13:47 Vital chart was started 13:13:57 Baseline sample Acquired. 13:13:58 Baseline sample Acquired. 13:13:59 Baseline sample Acquired. 13:14:02 Baseline sample Acquired. 13:14:18 Rhythm: sinus rhythm 13:14:21 Full Disclosure recording started 13:14:41 H&P Date Dictated: 02/09/2019 Within 30 days and on chart., H&P Addendum completed by physician on day of procedure. (MUST COMPLETE FOR ALL OUTPATIENTS). 13:14:43 Pre-procedure instructions explained to patient. 13:14:44 Pre-op teaching completed and patient verbalized understanding. 13:14:47 Family in waiting room. 13:14:51 Patient NPO since Midnight. 13:18:46 Patient diabetic? No. 13:18:51 Patient not . Patient is over age 55. 13:18:53 ----Pre-sedation anethsthesia assessment.---- 13:18:55 Previous problem with sedation/anesthesia? No ? 13:18:58 Snore? Yes 13:18:59 Sleep apnea? Yes 13:19:01 Deviated septum? No 13:19:02 Opens mouth fully? Yes 13:19:03 Sticks out tongue? Yes 13:19:14 Airway obstruction? Yes COPD, ASTHMA 13:19:33 IV patent on arrival in left antecubital with 0.9% NaCl at [facility]. 13:19:42 Alarms reviewed by Carroll Rubin 13:19:44 Physician arrived 13:19:45 --------ALL STOP TIME OUT------ 13:19:45 Final Timeout: patient, procedure, and site verified with staff and physician. All members of the team are in agreement. 13:19:51 Oxygen 2 l/min etCO2 Nasal cannula was administered by Maximo Veloz RN; used for procedure; 13:19:55 Fire Safety Assessment: C--Open oxygen or nitrous oxide is being used. 13:20:00 Physical assessment completed. ASA score P 3 - A patient with severe systemic disease as per Kiran Stephenson MD. 13:20:01 Hurricaine [place] 1 Sprays P.O. was administered by Kiran Stephenson MD; for local anesthetic; 13:20:05 Refer to Anesthesia Notes for Sedation Medications was administered by Kiran Stephenson MD; ; 13:20:05 Sedation plan: TIVA Medication:Propofol 13:20:12 Tonio Fischer CRNA present and monitoring patient for TIVA. 13:20:17 Procedure started. 13:21:09 DANDY started. 13:26:29 DANDY completed. 13:26:39 Procedure ended.(Physican Out) 13:28:51 Post-procedure physical assessment completed. ASA score P 3 - A patient with severe systemic disease as per Kiran Stephenson MD. 13:28:55 Post procedure rhythm: sinus rhythm 13:29:00 Patient needs reinforcement of post procedure teaching. 13:32:38 Vital chart was stopped 13:32:39 See physician's report for complete and final results. 13:32:41 Report given to Pre/Post Procedure Room. 13:32:46 Patient transfered to Pre/Post Procedure Room with Stretcher. 13:33:10 Procedure ended. 13:33:10 Full Disclosure recording stopped 13:33:17 End room use (Document Last) Signature Audit [place] Stage Time Signature Unsigned Intra-Procedure 02/20/2019 Delvin Hooks 1:33:41 PM RT(R) (CV) Signatures Monitor : Delvin Hooks RT Signature : Date : Time : [id number] [place] [address]
[~2019-02-20 11:01] MED LIST changes: +ALBUTEROL2.5 MG/3 M INH; +GABAPENTIN100 MG PO; +TESSALON PERLE100 MG PO; +Tessalon Perle PO; +VIBRAMYCIN 100100 MG PO
[2019-02-20] MEDS ORDERED: SYNTHROID137 MCG PO (11:53)
[2019-02-20] MEDS ORDERED: MOBIC7.5 MG PO (11:57)
[2019-02-20] MEDS ORDERED: MAG-OXIDE400 MG PO (11:58)
[2019-02-20] MEDS ORDERED: FEOSOL LIQ300 MG/5 M PO (11:59)
[2019-02-20 12:15] VITALS: BP 154/59; Ht 163.8 cm; Wt 236.4 kg
[2019-02-20 12:37] LABS: BASOPHILS 0.2 % (0-2); EOSINOPHILS 4.3 % (0-7); HEMATOCRIT 33.3 % (36.0-48.0); HEMOGLOBIN 10.7 g/dL (12-16); IMMATURE GRANULOCYTES 0.2 % (0-5); LYMPHOCYTES 25.9 % (15-50); MCHC 32.1 g/dL (31.0-37.0); MCV 90.2 fL (80.0-100.0); MEAN PLATELET VOLUME 11.6 fL (7.4-10.4); MONOCYTES 7.9 % (2-11); NEUTROPHILS 61.5 % (40-80); PLATELET COUNT 160 10x3/uL (130-400); RBC 3.69 10x6/uL (4.00-5.40); RDW 14.2 % (11.5-14.5); WBC 6.1 10x3/uL (4.8-10.8)
[2019-02-20 12:47] LABS: INR 1.04 (0.85-1.17); PROTIME 13.1 SECONDS (11.6-15.0)
[2019-02-20 12:48] LABS: ANION GAP 11.3 mmol/L (8-16); CARBON DIOXIDE 30.9 mmol/L (21.0-32.0); CREATININE - SERUM 1.1 mg/dL (0.6-1.3); POTASSIUM - SERUM 4.2 mmol/L (3.5-5.1)
--- NOTE | 2019-02-20 13:47 | NUR ---
RECEIVED PT FROM DANDY, PT IS ALERT, DENIES ANY C/O PAIN OR NAUSEA. VSS, DAUGHTER AT BEDSIDE. DR GROSS HAS ROUNDED AND SPOKEN WITH PT AND HER DAUGHTER. CALL LIGHT IN REACH, PT DENIES NEEDS AT THIS TIME.
--- NOTE | 2019-02-20 14:05 | NUR ---
PT SLEEPING, RESP WITH EASE. VSS, DAUGHTERS AT BEDSIDE, CALL LIGHT IN REACH.
--- NOTE | 2019-02-20 14:17 | NUR ---
PT DENIES ANY C/O. RESP WITH EASE ON ROOM AIR. DAUGHTERS AT BEDSIDE, CALL LGITH IN REACH.
--- NOTE | 2019-02-20 14:46 | NUR ---
PT IS ALERT, DENIES ANY C/O. PO FLUIDS AND PUDDING SERVED. DAUGHTERS AT BEDSIDE.
--- NOTE | 2019-02-20 15:28 | NUR ---
1500 PT HAS LEATHA PO FLUIDS AND PUDDING WITH NO C/O NAUSEA. VSS. IV DC'D WITH CATH INTACT. DC INSTRUCTIONS REVIEWED WITH PT AND DAUGHTER WHO VERBALIZE UNDERSTANDING. 1520 PT HAS DRESSED FOR DC WITH ASSIST FROM NURSE AND DAUGHTER. PT ESCORTED TO PRIVATE AUTO VIA OWN WHEELCHAIR. PT IS ALERT AND DENIES ANY C/O AT DC. PT'S SON DRIVING HER HOME.
--- NOTE | 2019-02-24 14:33 | TEE ---
PATIENT:PRUDENCIO GOODSON JANUARY MEDICAL RECORD: [id number] LOCATION:D[facility] AGE OF PATIENT: 64 ADMISSION DATE: 02/20/19 SEX: F REFERRING PHYSICIAN: INTERPRETING PHYSICIAN: LISSET GROSS MD TRANSESOPHAGEAL ECHOCARDIOGRAM Date: 02/20/19 DANDY CHARGE Y INDICATIONS: EVALUATE AORTIC VALVE PREMEDICATIONS: PATIENT'S RESPONSE PROCEDURE DOPPLER MEASUREMENTS: LVIT LA PA RA LVOT RVOT Asc. Ao AV Gradient Peak AV Mean AV Area MV Gradient Peak MV Mean MV Area INTERPRETATION: Doppler: 2-D: COLOR FLOW DOPPLER NORMAL SALINE STUDY: MISCELLANOUS: DIAGNOSIS: PLAN: [place] Supervisor:3 Dr. Agrawal Director Of Oncology: 1 DAVINA BURKETT COMMENTS: DATE OF SERVICE: 02/20/2019 DESCRIPTION OF PROCEDURE: After general sedation via TIVA via anesthesia, transesophageal Omniplane probe was placed in the distal esophagus and the proximal stomach without difficulty. FINDINGS: LVH is present. LV internal dimension are normal. Wall motion is normal. EF is greater than 55%. The aortic valve is tricuspid with good valve excursion. Mild AI by color-flow imaging. Left atrium appears with normal TRANSESOPHAGEAL ECHOCARDIOGRAM REPORT [id number] PRUDENCIO GOODSON J dimensions. Mitral valve shows no prolapse. Mild MR. Right-sided chambers and RV internal dimensions appear grossly normal. Right atrium is obviously dilated. Tricuspid valve is visualized with severe degree of TR by color-flow imaging. TRANSINT:[id number] Voice Confirmation ID: [id number] DOCUMENT ID: [id number] at 1433 CC: [id number] DICTATION DATE: 02/20/19 1334 DRILLING MACHINE OPERATOR: 02/20/192035 DEP CLI 02/20/19 [facility] [address] [place] [address]
== END 2019-02-20 15:20 | disposition home or self-care (01) ==
LOC: D.CATH 11:01
PROVIDERS: ATTEND Internal Medicine Interventional Cardiology
DX: I36.1 Nonrheumatic tricuspid (valve) insufficiency (principal); I35.1 Nonrheumatic aortic (valve) insufficiency; Z01.812 Encounter for preprocedural laboratory examination

== ENCOUNTER 2019-06-14 09:00 | Outpatient (CLI) | payer MEDICARE, MEDICAID ==
[2019-02-20 12:15] VITALS: BMI 88.0
[~2019-06-14 09:00] MED LIST changes: +FEOSOL LIQ300 MG/5 M PO; +MAG-OXIDE400 MG PO; +MOBIC7.5 MG PO; +SYNTHROID137 MCG PO
== END 2019-06-14 10:00 | disposition home or self-care (01) ==
LOC: D.MAMMO 09:00
PROVIDERS: ATTEND Family Medicine
DX: Z12.31 Encounter for screening mammogram for malignant neoplasm of breast (principal)

== ENCOUNTER → 2019-10-31 08:32 | Outpatient (CLI) | payer MEDICARE, MEDICAID ==
[2019-02-20 12:15] VITALS: BMI 88.0
== END | disposition home or self-care (01) ==
LOC: D.RT 08-25 11:00
PROVIDERS: ATTEND Internal Medicine Pulmonary Disease
DX: J45.909 Unspecified asthma, uncomplicated (principal)

== ENCOUNTER → 2020-02-29 10:08 | Outpatient (CLI) | payer MEDICARE, MEDICAID ==
[2019-02-20 12:15] VITALS: BMI 88.0
== END | disposition home or self-care (01) ==
LOC: D.ECHO 10:08
PROVIDERS: ATTEND Family Medicine
DX: I35.0 Nonrheumatic aortic (valve) stenosis (principal)

== ENCOUNTER → 2020-10-24 11:01 | Outpatient (CLI) | payer MEDICARE, MEDICAID ==
[2020-07-26 13:25] VITALS: BMI 88.2
[~2020-10-24 11:01] MED LIST changes: +ASCORBIC ACID500 MG PO; +COD LIVER OIL PO; +CYANOCOBAL1000 MCG/4 SC; +ELDERBERRY PO; +FLORAJEN3 CAPS460 MG PO; +GALZIN50 MG PO; +HYDROCODON-ACE1 EA10 PO; +HYDROCORTISONE30 G9 TOPICAL; +LOVASTATIN20 MG PO; +METOPROLOL TART50 MG PO; +MUCINEX600 MG PO; +NEOSPORIN OPTH TOPICAL; +NORVASC10 MG PO; +PROCTOFOAM TOPICAL; +SILVADENE20 GM TP; +SYMBICORT 80-10.2 GM INH; +VITAMIN B-12 SL; +VITAMIN D1000 UNI2 PO
== END | disposition home or self-care (01) ==
LOC: D.LAB 11:01
PROVIDERS: ATTEND Internal Medicine Pulmonary Disease
DX: Z20.822 Contact with and (suspected) exposure to COVID-19 (principal)

== ENCOUNTER → 2020-10-29 12:17 | Outpatient (CLI) | payer MEDICARE, MEDICAID ==
[2020-07-26 13:25] VITALS: BMI 88.2
== END | disposition home or self-care (01) ==
LOC: D.RAD 09-11 09:30
PROVIDERS: ATTEND Internal Medicine Pulmonary Disease
DX: J45.909 Unspecified asthma, uncomplicated (principal)

== ENCOUNTER → 2020-11-14 10:35 | Outpatient (CLI) | payer MEDICARE, MEDICAID ==
[2020-07-26 13:25] VITALS: BMI 88.2
--- NOTE | ~2020-11-14 | EC ---
PATIENT:PRUDENCIO GOODSON DATE OF SERVICE: 11/15/20 SEX: F MEDICAL RECORD: [id number] DATE OF : 57 LOCATION:D[facility] AGE OF PATIENT: 65 ADMISSION DATE: 11/14/20 REFERRING PHYSICIAN: INTERPRETING PHYSICIAN: ABRAHAM VELASCO M.D. ECHOCARDIOGRAM REPORT ECHO CHARGES 4 ECHO COMPLETE Date: 11/14/20 CLINICAL DIAGNOSIS: AORITC INSUFF/EF ECHOCARDIOGRAPHIC MEASUREMENTS (adult normal given) AC root (d.<3.7cm) 3.0 cm LV Septum d (<1.2 cm> 1.3 cm Valve Excursion 1.4 cm LV Septum (systole) 1.6 cm Left Atria (s.<4.0cm> 4.3 cm LVPW d(<1.2cm) 1.7 cm RV (d.<2.3cm) 4.2 cm LVPW (sytole) 1.8 cm LV diastole(<5.6CM) 5.3 cm MV E-F(>70mm/sec) cm LV systole 3.8 cm LVOT Diameter 1.9 cm MV exc.(>10mm) 1.8 cm Est.ejection fraction (50-75%) % DOPPLER: LVIT cm/sec A 69.0 cm/sec E 93.0 cm/sec LA cm/sec RVSP 34 mmHg LVOT 127 cm/sec AOP1/2T m/s Asc. Ao 193 cm/sec RVOT 94 cm/sec RA cm/sec PA 123 cm/sec AV Gradient Peak 14.90mmHg AV Mean 8.81 mmHg AV Area 2.1 cm MV Gradient Peak 6.23 mmHg MV Mean 2.38 mmHg MV Area cm COMMENTS: Vortex Operator: 2 BROOKS ZABALA Freezer Operator: 2 Dr. Velasco TAPE# PACS Pericardial Effusion N INDICATION: Aortic valve disease LEFT VENTRICLE: LVH with ejection fraction 60% MITRAL VALVE: No regurgitation or prolapse LEFT ATRIUM: Mildly dilated AORTIC VALVE: Thickened leaflets without stenosis or regurgitation ECHOCARDIOGRAM REPORT [id number] PRUDENCIO GOODSON RIGHT VENTRICLE: Normal size and function TRICUSPID VALVE: Mild regurgitation RIGHT ATRIUM: Mildly dilated PERICARDIUM: No effusion seen IMPRESSION: #1 LVH with ejection fraction 60% #2 aortic valve sclerosis without stenosis #3 mild tricuspid regurgitation at 0820 11/18/2020 Original report had no measurements, dmm. ABRAHAM VELASCO M.D. CC: [id number] DICTATION DATE: 11/15/[address] JUDGE: DM 11/18/20 1035 DEP CLI 11/14/20 [id number] [place] [address]
== END | disposition home or self-care (01) ==
LOC: D.HCCECHO 10:35
PROVIDERS: ATTEND Internal Medicine Cardiovascular Disease
DX: I35.1 Nonrheumatic aortic (valve) insufficiency (principal)